=== PATIENT | male | born 1940 | race Caucasian/White ===

== ENCOUNTER 2020-01-20 21:54 | Emergency (ER) | payer MEDICARE, SELFPAY ==
--- NOTE | ~2020-01-20 | XR_ITS ---
XR abdomen/kub 1V 01/20/2020 23:07 INDICATION: Flank pain TECHNIQUE: KUB COMPARISON: CT dated 01/20/2020 FINDINGS: Bowel gas pattern is normal. There are cholecystectomy clips. There is no evidence of free air, mass, organomegaly, ascites or obstruction. No abnormal calculi are seen. The bones appear int act. Moderate lumbar spondylosis. IMPRESSION: 1: No acute abdominal abnormality identified. Reviewed, dictated and finalized at location A.
--- NOTE | ~2020-01-20 | CT_ITS ---
EXAMINATION: CT abdomen pelvis wo con DATE: 01/20/2020 23:04 INDICATION: Left flank pain TECHNIQUE: Computed tomography (CT) of the abdomen and pelvis was performed without intravenous contr ast. The dose-length product was 427.56 mGy-cm. Automated exposure control and iterative reconstructi on technique were employed. COMPARISON: None. FINDINGS: There is a 2 cm cyst left hepatic lobe. Cardiomegaly. There is bibasilar atelectasis. Promi nent right cardiophrenic angle fat pad. No significant pleural or pericardial effusion. There is mild ectasia of the abdominal aorta measuring 2.9 cm with moderate atherosclerosis. There is a 6 cm exoph ytic right renal cyst. The spleen, pancreas, adrenal glands and left kidney are unremarkable. Colonic diverticulosis without evidence for diverticulitis. No lymphadenopathy. Status post cholecystectomy. No free air or free fl uid. Moderate lumbar spondylosis. IMPRESSION: 1. Mild ectasia of the infrarenal abdominal aorta measuring 2.9 cm greatest AP dimension. 2: No acute abdominal abnormality. Reviewed, dictated and finalized at location A.
[2020-01-20 22:01] VITALS: BP 195/80; PULSE 66; RESP 18; TEMP 36.9; O2SAT 100
[2020-01-20] MEDS: MORPHINE SULFATE 4 MG/ML INJ IV PUSH (22:13)
[2020-01-20] MEDS: ONDANSETRON INJ 4 MG/2 ML VIAL IV PUSH (22:13)
--- NOTE | 2020-01-20 22:19 | ED.ABDPAIN ---
HPI - Abdominal Pain General Chief Complaint: Abdominal Pain Stated Complaint: L kidney pain Time Seen by Provider: 01/20/20 21:55 Source: patient Mode of arrival: ambulatory Limitations: no limitations History of Present Illness HPI narrative: This patient is an 79 year old male with history kidney stones, CAD with stents who presents for evaluation of left flank pain. He has been having intermittent pain for 4-5 days. His pain has been to his left flank and it is radiating around to his left abdomen. He has been taking aleve for his pain. He has nausea but no vomiting. He has no urinary symptoms. He reports this pain is similar to previous episode of kidney stones. He denies any trauma MD elicited complaint: flank pain Onset (ago): day(s) (4) Pain Consistency: intermittent Location: L flank Related Data Allergies Allergy/AdvReac Type Severity Reaction Status Date / Time NFA Allergy Unknown Uncoded 12/15/02 13:03 Review of Systems Review of Systems: All systems reviewed & are unremarkable except as noted in HPI and below Constitutional: Constitutional: Denies chills, Denies fever(s) and Denies weakness Cardiovascular: Cardiovascular: Denies chest pain Respiratory: Respiratory: Denies cough and Denies dyspnea Gastrointestinal: Gastrointestinal: Reports abdominal pain, Denies diarrhea, Reports nausea and Denies vomiting Genitourinary: Genitourinary: Denies hematuria, Denies oliguria and Denies urinary frequency Musculoskeletal: Musculoskeletal: Reports back pain [facility] Past Medical History Medical History (Updated 01/21/20 @ 00:54 by Gogo Roger MD) Coronary artery disease Hypertension Surgical History Surgical History (Updated 01/20/20 @ 22:23 by Gogo Roger MD) H/O heart artery stent Exam Const: General: no acute distress and alert Orientation/consciousness: patient oriented x3 Eyes: EOM: EOMs intact bilaterally Resp: Effort & Inspection: normal respiratory effort, no retractions and no use of accessory muscles Auscultation: clear to auscultation bilaterally Cardio: Rate: regular rate Rhythm: regular rhythm Heart sounds: no murmurs Peripheral pulses: Peripheral pulses 2+ throughout GI: GI Palp: Yes Soft to palpation, No Tenderness to palpation present (GI), No Guarding due to palpation present (GI), No Rigid due to palpation and No Hernia present : General: Yes CVA tenderness Skin: General skin exam: normal color Rashes: no rashes Neuro: General: patient oriented x3 and moves all extremities Extrem: General: no pedal edema Course Reevaluation(s) Reevaluation #1: Patient states his pain has resolved. I Discussed CT results. Date: 01/21/20 Time: 00:51 Vital Signs Vital signs: Vital Signs Temperature 98.4 F 01/20/20 22:01 Pulse Rate 66 01/20/20 22:01 Respiratory Rate 18 01/20/20 22:01 Blood Pressure 195/80 H 01/20/20 22:01 Pulse Oximetry 100 01/20/20 22:01 Temperature 98.1 F 01/21/20 01:54 Pulse Rate 85 01/21/20 01:54 Respiratory Rate 18 01/21/20 01:54 Blood Pressure 148/86 H 01/21/20 01:54 Pulse Oximetry 97 01/21/20 01:54 MDM - Abdominal Pain Lab Data Attestation: I reviewed the patient's lab results. Result diagrams: 01/20/20 22:11 01/20/20 22:11 Labs: Lab Results 01/20/20 01/20/20 01/20/20 Range/Units 22:11 22:11 22:11 WBC 10.2 H (4.5-10.0) K/mm3 RBC 4.30 L (4.6-6.20) M/mm3 Hgb 14.3 (14.0-18.0) g/dL Hct 42.4 (42.0-52.0) % MCV 98.6 (80-100) fl MCH 33.3 (26-34) pg MCHC 33.7 (32-36) g/dl RDW 12.8 (11.5-14.5) % Plt Count 197 (150-375) k/mm3 MPV 9.4 (7.4-10.4) fl Immature Gran % (Auto) 0.4 (0-0.5) % Neut % (Auto) 64.0 (45.5-73.1) % Lymph % (Auto) 23.9 (18.3-44.2) % Hamlin % (Auto) 9.3 H (2.6-8.5) % Eos % (Auto) 2.0 (0-4.4) % Baso % (Auto) 0.4 (0.2-1.2) % Lymph # (Auto) 2.44 (0.9-3.2) K/mm3
[2020-01-20 22:23] LABS: Basophils Percent Auto 0.4 % (0.2-1.2); Eosinophils Absolute Auto 0.2 K/mm3 (0-0.3); Hematocrit 42.4 % (42.0-52.0); Hemoglobin 14.3 g/dL (14.0-18.0); Immature Granulocyte Absolute 0.04 K/mm3 (0.00-0.031); Immature Granulocyte Percent A 0.4 % (0-0.5); Lymphocytes Absolute Auto 2.44 K/mm3 (0.9-3.2); Lymphocytes Percent Auto 23.9 % (18.3-44.2); Mean Corpuscular HGB Conc 33.7 g/dl (32-36); Mean Corpuscular Hemoglobin 33.3 pg (26-34); Mean Corpuscular Volume 98.6 fl (80-100); Mean Platelet Volume 9.4 fl (7.4-10.4); Monocytes Percent Auto 9.3 % (2.6-8.5); Neutrophils Absolute Auto 6.6 K/mm3 (1.3-6.7); Platelet Count Result 197 k/mm3 (150-375); Red Cell Distribution Width 12.8 % (11.5-14.5); White Blood Count 10.2 K/mm3 (4.5-10.0)
[2020-01-20 22:30] LABS: Alanine Aminotransferase 45 U/L (4-50); Albumin Level 4.2 g/dL (3.5-5.1); Alkaline Phosphatase 81 U/L (38-126); Anion Gap 11.8 mmol/L (7-16); Aspartate Amino Transferase 39 U/L (17-59); Bilirubin,Total 0.8 mg/dL (0.2-1.3); Blood Urea Nitrogen 28 mg/dL (9-20); Calcium 8.9 mg/dL (8.4-10.2); Carbon Dioxide 29 mmol/L (22-30); Chloride 99 mmol/L (98-107); Estimated CRCL calculation 75 ml/min; Estimated Glomerular Filt Rate > 60; Glucose 144 mg/dL (75-110); Lipase 94 U/L (23-300); Potassium 3.8 mmol/L (3.4-5.0); Sodium 136 mmol/L (137-145)
[2020-01-20 22:52] LABS: Add Urine Microscopic? YES; Appearance Urine Clear (Clear); Bilirubin Urine Negative (Negative); Blood Urine 1+ (Negative); Color Urine Yellow (Yellow); Glucose Urine UA Negative (Negative); Ketones Urine Negative (Negative); Leukocyte Esterase Ur Negative LEU/UL (Negative); Mucus Urine Moderate /lpf; Nitrate Urine Negative (Negative); Protein Urine 1+ mg/dL (Negative); Specific Grav Ur 1.025 (1.001-1.035); Urobilinogen Urine Negative mg/dL (<2.0); WBC Urine 0-3 /hpf
[2020-01-21 00:52] VITALS: BP 184/92; PULSE 81; RESP 16; O2SAT 97
[2020-01-21 01:54] VITALS: BP 148/86; PULSE 85; RESP 18; TEMP 36.7; O2SAT 97
== END 2020-01-21 00:20 | disposition home or self-care (01) ==
PROVIDERS: Emergency Provider General Practice; PCP Family Medicine
DX: R10.9 Unspecified abdominal pain (principal); I10 Essential (primary) hypertension; I25.10 Atherosclerotic heart disease of native coronary artery without angina pectoris
CPT/HCPCS: 36415; 74018; 74176; 80048; 80076; 81001; 83690; 85025; 96374; 96375; 99284; J2270; J2405

== ENCOUNTER 2020-03-16 07:36 | Outpatient (CLI) | payer MEDICARE, SELFPAY ==
[2020-03-16 08:17] LABS: Alanine Aminotransferase 64 U/L (4-50); Albumin Level 3.8 g/dL (3.5-5.1); Alkaline Phosphatase 88 U/L (38-126); Aspartate Amino Transferase 40 U/L (17-59); Bilirubin,Total 0.7 mg/dL (0.2-1.3); Cholesterol 139 mg/dL (0-200); HDL Direct 42 mg/dL; Triglycerides 47 mg/dL (<150)
[2020-03-16 08:28] LABS: LDL Cholesterol Direct 75 mg/dL
== END 2020-03-16 07:37 | disposition home or self-care (01) ==
PROVIDERS: PCP Family Medicine
DX: E78.5 Hyperlipidemia, unspecified (principal); I25.10 Atherosclerotic heart disease of native coronary artery without angina pectoris
CPT/HCPCS: 36415; 80061; 80076

== ENCOUNTER 2021-03-24 07:18 | Outpatient (CLI) | payer MEDICARE, SELFPAY ==
[2021-03-24 08:25] LABS: Alanine Aminotransferase 29 U/L (4-50); Albumin Level 4.2 g/dL (3.5-5.1); Alkaline Phosphatase 68 U/L (38-126); Aspartate Amino Transferase 32 U/L (17-59); Bilirubin,Total 0.7 mg/dL (0.2-1.3); Cholesterol 119 mg/dL (0-200); HDL Direct 36 mg/dL; Triglycerides 83 mg/dL (<150)
[2021-03-24 08:36] LABS: LDL Cholesterol Direct 64 mg/dL
== END 2021-03-24 07:19 | disposition home or self-care (01) ==
PROVIDERS: PCP Family Medicine; Visit Provider Internal Medicine Cardiovascular Disease
DX: I25.10 Atherosclerotic heart disease of native coronary artery without angina pectoris (principal); E78.5 Hyperlipidemia, unspecified
CPT/HCPCS: 36415; 80061; 80076

== ENCOUNTER 2022-03-13 07:26 | Outpatient (CLI) | payer MEDICARE, SELFPAY ==
[2022-03-13 08:06] LABS: Alanine Aminotransferase 36 U/L (6-50); Albumin Level 4.1 g/dL (3.5-5.1); Alkaline Phosphatase 70 U/L (38-126); Aspartate Amino Transferase 38 U/L (17-59); Cholesterol 136 mg/dL (0-200); HDL Direct 43 mg/dL; Triglycerides 117 mg/dL (<150)
[2022-03-13 08:17] LABS: LDL Cholesterol Direct 69 mg/dL
== END 2022-03-13 07:27 | disposition home or self-care (01) ==
PROVIDERS: PCP Family Medicine; Visit Provider Internal Medicine Cardiovascular Disease
DX: E78.2 Mixed hyperlipidemia (principal); I25.10 Atherosclerotic heart disease of native coronary artery without angina pectoris; I10 Essential (primary) hypertension
CPT/HCPCS: 36415; 80061; 80076

== ENCOUNTER 2023-03-19 07:52 | Outpatient (CLI) | payer MEDICARE, SELFPAY ==
[2023-03-19 08:52] LABS: Alanine Aminotransferase 33 U/L (6-50); Alkaline Phosphatase 68 U/L (38-126); Aspartate Amino Transferase 39 U/L (17-59); Cholesterol 140 mg/dL (0-200); HDL Direct 41 mg/dL; Triglycerides 122 mg/dL (<150)
[2023-03-19 09:04] LABS: LDL Cholesterol Direct 77 mg/dL
== END 2023-03-19 07:53 | disposition home or self-care (01) ==
LOC: ANHLAB 07:59
PROVIDERS: PCP Family Medicine; Visit Provider Internal Medicine Cardiovascular Disease
DX: E78.2 Mixed hyperlipidemia (principal); I10 Essential (primary) hypertension
CPT/HCPCS: 36415; 80061; 80076

== ENCOUNTER 2023-10-28 07:10 | Outpatient (CLI) | payer MEDICARE, SELFPAY ==
[2023-10-28 07:56] LABS: Alanine Aminotransferase 28 U/L (6-50); Albumin Level 4.1 g/dL (3.5-5.1); Alkaline Phosphatase 69 U/L (38-126); Anion Gap 6 mmol/L (4-12); Aspartate Amino Transferase 32 U/L (17-59); Blood Urea Nitrogen 20 mg/dL (9-20); Carbon Dioxide 26 mmol/L (22-30); Chloride 107 mmol/L (98-107); Cholesterol 133 mg/dL (0-200); Estimated Glomerular Filt Rate > 60; Glucose 116 mg/dL (65-110); HDL Direct 49 mg/dL; Potassium 3.9 mmol/L (3.4-5.0); Sodium 139 mmol/L (137-145); Triglycerides 74 mg/dL (<150)
[2023-10-28 08:07] LABS: LDL Cholesterol Direct 73 mg/dL
== END 2023-10-28 07:11 | disposition home or self-care (01) ==
LOC: ANHLAB 07:14
PROVIDERS: PCP Family Medicine; Visit Provider Internal Medicine Cardiovascular Disease
DX: I25.10 Atherosclerotic heart disease of native coronary artery without angina pectoris (principal)
CPT/HCPCS: 36415; 80053; 80061

== ENCOUNTER 2024-01-03 10:13 | Outpatient (CLI) | payer MEDICARE, SELFPAY ==
--- NOTE | ~2024-01-03 | CT_ITS ---
CT Scan of the Chest without Contrast: Clinical Indication: COPD Technique: Contiguous sections were acquired throughout the chest without intravenous contrast. Dose reduction technique was used on this scan by utilizing automated exposure control and iterative recon struction technique. The dose-length product (DLP) was 447.83 mGy-cm. Findings: There is no evidence of any significant mediastinal, hilar or axillary lymphadenopathy. There are ext ensive atherosclerotic calcifications of the aorta and coronary arteries. There is no evidence of pleural or pericardial effusion. There is moderately distended. There is diffuse subpleural reticulation and peripheral interstitial t hickening, consistent with chronic interstitial disease. There are several subcentimeter pleural-base d nodular opacities bilaterally. Images through the upper abdomen reveal no abnormalities. Impression: Mild emphysema with mild to moderate chronic interstitial disease, as detailed above. Several subcentimeter pleural-based pulmonary nodules, most likely benign, largest measuring 7 mm. Reviewed, dictated and finalized at [facility]. Impression: Mild emphysema with mild to moderate chronic interstitial disease, as detailed above. Several subcentimeter pleural-based pulmonary nodules, most likely benign, larg est measuring 7 mm.
== END 2024-01-03 10:14 ==
LOC: MICIMG 10:16
PROVIDERS: PCP Family Medicine; Visit Provider Family Medicine
DX: J43.9 Emphysema, unspecified (principal); R91.8 Other nonspecific abnormal finding of lung field
CPT/HCPCS: 71250

== ENCOUNTER 2024-01-08 09:41 | Outpatient (CLI) | payer MEDICARE, SELFPAY ==
--- NOTE | 2024-01-09 18:48 | P.PCNPFT_ITS ---
PFT Procedure Performed PFT Procedure Performed Spirometry with Pre/Post Bronchodilator Plethysmography (Lung Vol) Diffusing Cap (DLCO) Flow Vol Loop PFT Interpretation DOS: 01/08/2024 REQUESTING: Stewart Lipscomb MD REASON FOR TESTING: PULMONARY FUNCTION TESTS Results are reliable and reproducible. Repeatability of spirometry FEV1 maneuver pre and post bronchodilator is Grade A. Spirometry: The pre-bronchodilator FEV1 is 1.78 L, 61%, reduced. The pre- bronchodilator FVC is 4.08 L, 101%, normal. The FEV1/FVC ratio is 44%, decreased, consistent with airflow obstruction. After bronchodilator, the FEV1 is 1.35 L, 46% predicted, -24%. The post bronchodilator FVC is 3.98 L, 99%, -2%. The FEV1/FVC ratio is 34%, decreased. Lung volumes: The total lung capacity is 5.64 L, 75%, below the lower limit of normal, consistent with a restrictive pattern. The residual volume is 1.56 L, 55%, below normal. The RV/TLC is 28%, below normal. Airway resistance is increased. Diffusion: DLCO is 16, 67% predicted, normal. The DLCO/VA is 3.36, 99% predicted, normal. Flow volume loop: The flow volume loop is abnormal with flattening of both limbs, more flattening of the expiratory compared to the inspiratory limb. This pattern is not typical for for either obstruction of restriction. IMPRESSION: This study shows both an obstructive ventilatory impairment and a restrictive impairment without response to bronchodilator. Diffusion is normal. When both obstructive and restrictive abnormalities are present, there is not a standard grading system for determining severity of the obstruction. Lack of response to bronchodilator should not preclude use if clinically indicated. There are no prior studies to compare. The flow volume loop pattern is non-specific. Consider repeating PFTs with flow volume loops in 3-6 months for comparison. . Melodie Rome MD
== END 2024-01-08 09:42 | disposition home or self-care (01) ==
LOC: ANHPFT 09:43
PROVIDERS: PCP Family Medicine; Visit Provider Family Medicine
DX: J44.9 Chronic obstructive pulmonary disease, unspecified (principal)
CPT/HCPCS: 94060; 94726; 94729

== ENCOUNTER 2024-02-14 07:51 | Outpatient (CLI) | payer MEDICARE, SELFPAY ==
[2024-02-14 08:51] LABS: Alanine Aminotransferase 31 U/L (6-50); Alkaline Phosphatase 63 U/L (38-126); Anion Gap 8 mmol/L (4-12); Aspartate Amino Transferase 35 U/L (17-59); Bilirubin,Total 0.9 mg/dL (0.2-1.3); Blood Urea Nitrogen 21 mg/dL (9-20); Calcium 8.8 mg/dL (8.4-10.2); Carbon Dioxide 31 mmol/L (22-30); Chloride 101 mmol/L (98-107); Cholesterol 122 mg/dL (0-200); Estimated Glomerular Filt Rate > 60; Glucose 97 mg/dL (65-110); HDL Direct 44 mg/dL; Potassium 4.1 mmol/L (3.4-5.0); Sodium 140 mmol/L (137-145); Triglycerides 79 mg/dL (<150)
[2024-02-14 09:01] LABS: LDL Cholesterol Direct 61 mg/dL
== END 2024-02-14 07:52 | disposition home or self-care (01) ==
LOC: ANHLAB 07:56
PROVIDERS: PCP Family Medicine; Visit Provider Internal Medicine Cardiovascular Disease
DX: I25.10 Atherosclerotic heart disease of native coronary artery without angina pectoris (principal); I10 Essential (primary) hypertension; E78.2 Mixed hyperlipidemia; R06.09 Other forms of dyspnea
CPT/HCPCS: 36415; 80053; 80061

== ENCOUNTER 2024-08-05 10:59 | Outpatient (CLI) | payer MEDICARE, SELFPAY ==
--- NOTE | ~2024-08-05 | CT_ITS ---
EXAMINATION: CT diagnostic chest wo con DATE: 08/05/2024 11:40 INDICATION: Pulmonary disease TECHNIQUE: Computed tomography (CT) of the chest was performed without intravenous contrast. Addition al 3D reconstructions utilizing coronal maximum intensity projection (MIP) were performed. Automated exposure control and iterative reconstruction technique were employed. The dose-length product was 16 6.41 mGy-cm. COMPARISON: 01/03/2024 FINDINGS: Mild emphysema. Stable appearance of peripheral and lower lung predominant irregular septal line thic kening consistent with chronic interstitial lung disease with either nonspecific interstitial pneumon ia (NSIP) or usual interstitial pneumonia (UIP) pattern. No interval change in multiple subcentimeter pleural and subpleural nodules at the periphery of the bilateral lower lungs, the largest in the rig ht middle lobe measuring 9 x 5 mm. No new or enlarging pulmonary nodules, pneumonia, pulmonary edema or pleural effusion. Heart size is normal. Atherosclerotic coronary artery calcific lesion. Thoracic aorta is normal in caliber. No pathologically enlarged thoracic lymphadenopathy. Cholecystectomy clip s at the gallbladder fossa. There are couple low-attenuation hepatic cysts the largest measuring 2.0 cm. There is also a partially visualized at least 2.5 similar exophytic cyst at the right kidney. Sma ll sliding-type hiatal hernia. Moderate to severe thoracic spondylosis. IMPRESSION: 1. Mild emphysema with stable appearance of peripheral and lower lung predominant UIP versus NSIP pat tern chronic interstitial lung disease. 2. Several unchanged subcentimeter pleural and subpleural nodules in the bilateral lower lungs. Consi piper 12 month follow-up low-dose noncontrast chest CT. Reviewed, dictated and finalized at location A. PAPER SUBSCRIPTION SOLICITOR IMPRESSION: 1. Mild emphysema with stable appearance of peripheral and lower lung predomina nt UIP versus NSIP pattern chronic interstitial lung disease. 2. Several unchanged subcentimeter pleural and subpleural nodules in the bilate ral lower lungs. Consider 12 month follow-up low-dose noncontrast chest CT.
--- OUTSIDE RECORDS SUMMARY | 2024-08-05 11:54 | XMS_ITS | Clinical Summary ---
Author Organization [facility] Address [address] [place] [id number] Care Team Providers Care Cement Mixer Name Role Phone Unavailable Primary Care Provider Unavailabl e Social History Tobacco Use Types Packs/Day Years Used Date Smoking Tobacco: Never Assessed Sex and Gender Information Value Date Recorded Sex Assigned at Not on file Legal Sex Male 5:02 PM CDT Gender Identity Not on file Sexual Orientation Not on file Plan of Treatment Health Maintenance Due Date Last Done Comments DTaP, Tdap and Td Vaccines ( 1 - Tdap) 11/23/1958 Zoster Vaccines (1 of 2) 11/23/1989 Pneumococcal Vaccine: 65+ Ye ars (1 of 1 - PCV) 11/23/2004 RSV Immunization or 60+ Years (1 - 1-dose 75+ series) 11/23/2014 COVID-19 Vaccine ( - 2023-2 5 season) 2024 Influenza Adult (#1) 2024 Meningococcal B Vaccine Aged Out No l onger eligible based on patient's age to complete this topic Meningococcal Vaccine Aged Out No beth darrick eligible based on patient's age to complete this topic RSV Immunizations Under 20 Months Aged Out No longer eligible based on patient's age to complete this topic
--- OUTSIDE RECORDS SUMMARY | 2024-08-05 11:54 | XMS_ITS | Encounter Summary ---
Author Organization [facility] Facility Care Team Providers Care Examiner Rating Clerk Name Role Phone Stewart Lipscomb MD Primary Care Provider [phone] No, Physician Primary Care Provider [phone] Stewart Lipscomb MD Primary Care Provider [phone] Encounter Details Date Type Department Care Team (Latest Contact Info) Description 10/10/2016 Orders Only [facility] ProviderRob MD [address] [place] [id number] Social History Tobacco Use Types Packs/Day Years Used Date Smoking Tobacco: Never Assessed Sex and Gender Information Value Date Recorded Sex Assigned at Not on file Legal Sex Male 11:25 AM CDT Gender Identity Not on file Sexual Orientation Not on file documented as of this encounter Plan of Treatment Not on file documented as of this encounter Procedures Procedure Name Priority Date/Time Associated Diagnosis Comments SCAN - LABS 09/06/2016 12:00 AM CDT documented in this encounter Results * SCAN - LABS (09/06/2016 12:00 AM CDT) Narrative 09/06/2016 12:00 AM CDT Ordered by an unspecified provider. Historical Provider Final Res ult documented in this encounter Visit Diagnoses Not on filedocumented in this encounter Care Teams Examiner Rating Clerk Relationship Specialty Start Date End Date Stewart Lipscomb MD PCP - General Family Medicine 04/04/18 12/17/22 No, Physician PCP - General 03/25/23 07/11/23 Stewart Lipscomb MD PCP - General Family Medicine 07/12/23 documented as of this encounter
--- OUTSIDE RECORDS SUMMARY | 2024-08-05 11:54 | XMS_ITS | Encounter Summary ---
Author Organization [facility] Facility Care Team Providers Care Teacher Physically Impaired Name Role Phone Stewart Lipscomb MD Primary Care Provider [phone] No, Physician Primary Care Provider [phone] Stewart Lipscomb MD Primary Care Provider [phone] Encounter Details Date Type Department Care Team (Latest Contact Info) Description 07/03/2018 Orders Only [facility] ProviderRob MD [address] [place] [address] Social History Tobacco Use Types Packs/Day Years Used Date Smoking Tobacco: Former Smokeless Tobacco: Never Sex and Gender Information Value Date Recorded Sex Assigned at Not on file Legal Sex Male 11:25 AM CDT Gender Identity Not on file Sexual Orientation Not on file documented as of this encounter Plan of Treatment Not on file documented as of this encounter Procedures Procedure Name Priority Date/Time Associated Diagnosis Comments SCAN - LABS 03/18/2018 12:00 AM CDT documented in this encounter Results * SCAN - LABS (03/18/2018 12:00 AM CDT) Narrative 03/18/2018 12:00 AM CDT Ordered by an unspecified provider. Historical Provider Final Res ult documented in this encounter Visit Diagnoses Not on filedocumented in this encounter Care Teams Teacher Physically Impaired Relationship Specialty Start Date End Date Stewart Lipscomb MD PCP - General Family Medicine 04/04/18 12/17/22 No, Physician PCP - General 03/25/23 07/11/23 Stewart Lipscomb MD PCP - General Family Medicine 07/12/23 documented as of this encounter
--- OUTSIDE RECORDS SUMMARY | 2024-08-05 11:54 | XMS_ITS | Encounter Summary ---
Author Organization [facility] Facility Care Team Providers Care Emergency Department Technician Name Role Phone Stewart Lipscomb MD Primary Care Provider [phone] No, Physician Primary Care Provider [phone] Stewart Lipscomb MD Primary Care Provider [phone] Encounter Details Date Type Department Care Team (Latest Contact Info) Description 02/20/2018 Orders Only [facility] ProviderRob MD [address] [place] [id number] Social History Tobacco Use Types Packs/Day Years [...] Procedure Name Priority Date/Time Associated Diagnosis Comments PROCEDURE - RESULT 02/20/2018 12 :00 AM CDT PROCEDURE - RESULT 02/20/2018 12 :00 AM CDT PROCEDURE - RESULT 02/20/2018 12 :00 AM CDT documented in this encounter Results * PROCEDURE - RESULT (02/20/2018 12:00 AM CDT) Narrative 02/20/2018 12:00 AM CDT Ordered by an unspecified provider. Historical Provider Final Res ult * PROCEDURE - RESULT (02/20/2018 12:00 AM CDT) Narrative 02/20/2018 12:00 AM CDT Ordered by an unspecified provider. Historical Provider Final Res ult * PROCEDURE - RESULT (02/20/2018 12:00 AM CDT) Narrative 02/20/2018 12:00 AM CDT Ordered by an unspecified provider. Historical Provider Final Res ult documented in this encounter Visit Diagnoses Not on filedocumented in this encounter Care Teams Emergency Department Technician Relationship Specialty Start Date End Date Stewart Lipscomb MD PCP - General Family Medicine 04/04/18 12/17/22 No, Physician PCP - General 03/25/23 07/11/23 Stewart Lipscomb MD PCP - General Family Medicine 07/12/23 documented as of this encounter
--- OUTSIDE RECORDS SUMMARY | 2024-08-05 11:54 | XMS_ITS | Encounter Summary ---
Author Organization [facility] Facility Care Team Providers Care Tree Farmer Name Role Phone Stewart Lipscomb MD Primary Care Provider [phone] No, Physician Primary Care Provider [phone] Stewart Lipscomb MD Primary Care Provider [phone] Encounter Details Date Type Department Care Team (Latest Contact Info) Description 11/29/2017 Orders Only [facility] ProviderRob MD [address] [place] [address] Social History Tobacco Use Types Packs/Day [...] Priority Date/Time Associated Diagnosis Comments SCAN - PATHOLOGY 11/29/2017 12:0 0 AM CDT documented in this encounter Results * SCAN - PATHOLOGY (11/29/2017 12:00 AM CDT) Narrative 11/29/2017 12:00 AM CDT Ordered by an unspecified provider. Historical Provider Final Res ult documented in this encounter Visit Diagnoses Not on filedocumented in this encounter Care Teams Tree Farmer Relationship Specialty Start Date End Date Stewart Lipscomb MD PCP - General Family Medicine 04/04/18 12/17/22 No, Physician PCP - General 03/25/23 07/11/23 Stewart Lipscomb MD PCP - General Family Medicine 07/12/23 documented as of this encounter
--- OUTSIDE RECORDS SUMMARY | 2024-08-05 11:54 | XMS_ITS | Encounter Summary ---
Author Organization [facility] Facility Care Team Providers Care Telephone Triage Nurse Name Role Phone Stewart Lipscomb MD Primary Care Provider [phone] No, Physician Primary Care Provider [phone] Stewart Lipscomb MD Primary Care Provider [phone] Encounter Details Date Type Department Care Team (Latest Contact Info) Description 01/08/2018 Orders Only [facility] ProviderRob MD [address] [place] [id number] Social History Tobacco Use Types Packs/Day [...] Date/Time Associated Diagnosis Comments SCAN - LABS 12/30/2017 12:00 AM CDT documented in this encounter Results * SCAN - LABS (12/30/2017 12:00 AM CDT) Narrative 12/30/2017 12:00 AM CDT Ordered by an unspecified provider. Historical Provider Final Res ult documented in this encounter Visit Diagnoses Not on filedocumented in this encounter Care Teams Telephone Triage Nurse Relationship Specialty Start Date End Date Stewart Lipscomb MD PCP - General Family Medicine 04/04/18 12/17/22 No, Physician PCP - General 03/25/23 07/11/23 Stewart Lipscomb MD PCP - General Family Medicine 07/12/23 documented as of this encounter
--- OUTSIDE RECORDS SUMMARY | 2024-08-05 11:54 | XMS_ITS | Encounter Summary ---
Author Organization [facility] Facility Care Team Providers Care Book Repairer Name Role Phone Stewart Lipscomb MD Primary Care Provider [phone], Physician Primary Care Provider [phone] Stewart Lipscomb MD Primary Care Provider [phone] Encounter Details Date Type Department Care Team (Latest Contact Info) Description 07/15/2015 Orders Only [facility] ProviderRob MD [address] [place] [id number] Social History Tobacco Use Types Packs/Day [...] Date/Time Associated Diagnosis Comments SCAN - LABS 04/04/2016 12:00 AM CDT documented in this encounter Results * SCAN - LABS (04/04/2016 12:00 AM CDT) Narrative 04/04/2016 12:00 AM CDT Ordered by an unspecified provider. Historical Provider Final Res ult documented in this encounter Visit Diagnoses Not on filedocumented in this encounter Care Teams Book Repairer Relationship Specialty Start Date End Date Stewart Lipscomb MD PCP - General Family Medicine 04/04/18 12/17/22 No, Physician PCP - General 03/25/23 07/11/23 Stewart Lipscomb MD PCP - General Family Medicine 07/12/23 documented as of this encounter
--- OUTSIDE RECORDS SUMMARY | 2024-08-05 11:54 | XMS_ITS | Clinical Summary ---
Author Organization [facility] Address [address] [place] [address] Care Team Providers Care Instrument Specialist Name Role Phone Stewart Lipscomb MD Primary Care Provider [phone] Allergies No known active allergies Medications doxazosin (CARDURA) 4 mg tablet Take 1 tablet (4 mg total) by mouth nightly 8 Active finasteride (PROSCAR) 5 mg tablet Take 1 tablet (5 mg total) by mouth daily 8 Active omega 5-svs-rgm-fish oil 360-1,200 mg capsule,delayed release(DR/EC) Take 2,400 mg by mouth nightly Active famotidine (PEPCID) 20 mg tablet Take 1 tablet (20 mg total) by mouth 2 (two) times a day Active amitriptyline (ELAVIL) 50 mg tablet Take 1 tablet (50 mg total) by mouth 2 (two) times a day 180 tablet 1 1 Active SUMAtriptan (IMITREX) 50 mg tabletIndicatio ns:Migraine Take 1 tablet (50 mg total) by mouth as needed for migraine May repeat dose once in 2 hours if no relief. Do not exceed 2 doses in 24 hours. 60 tablet 3 1 Active multivitamin capsule Take 1 capsule by mouth daily Active amLODIPine (NORVASC) 10 mg tablet Take 1 tablet (10 mg total) by mouth daily 90 tablet 3 2 Active clopidogreL (PLAVIX) 75 mg tablet Take 1 tablet (75 mg total) by mouth daily 90 tablet 3 4 Active atorvastatin (LIPITOR) 80 mg tablet Take 1 tablet (80 mg total) by mouth daily 90 tablet 3 4 Active lisinopriL (PRINIVIL,ZESTR IL) 10 mg tablet Take 1 tablet (10 mg total) by mouth daily 90 tablet 3 4 Active ezetimibe (ZETIA) 10 mg tablet Take 1 tablet (10 mg total) by mouth daily 90 tablet 3 4 Active fluticasone propionate (FLONASE) 50 mcg/actuation nasal sprayIndication s:YESENIA (obstructive sleep apnea),Panlobul ar emphysema (HCC) Administer 2 sprays into each nostril daily 16 g 6 5 01/24/20 25 Active loratadine (CLARITIN) 10 mg tabletIndicatio ns:YESENIA (obstructive sleep apnea),Panlobul ar emphysema (HCC) Take 1 tablet (10 mg total) by mouth daily 30 tablet 11 5 07/27/19 26 Active Active Problems Problem Noted Date Diagnosed Date 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 The patient also has an albuterol inhaler to use on a p.r.n. basis up to 4 times a day as needed symptom control. I also ordered the patient a Flonase and Claritin to see if this may help with postnasal drip and cough. Pulmonary nodules 07/27/2024 Assessment & Plan (07/27/2024 11:15 AM CORROSION CONTROL ENGINEER): I have ordered CT scan to compare the pulmonary nodules. The patient is going to obtain a disc from [facility] so that we can compare images. Chest pressure 10/10/2022 YESENIA (obstructive sleep apnea) 05/08/2021 Assessment & Plan (07/27/2024 11:14 AM CORROSION CONTROL ENGINEER): Due to ongoing symptoms, the patient will continue CPAP at 5-15 cm water pressure. Denied need for supplies. DME [employer] Assessment & Plan (04/23/2024 11:22 AM CDT): Patient continue to wear CPAP in auto titrating range of 5-15 cm water pressure while sleeping. His DME is [facility]. Assessment & Plan (04/22/2023 11:12 AM CDT): Patient continue to wear CPAP in auto titrating range of 5-15 cm water pressure while sleeping. His DME is [facility]. I have sent over an order to change the style of CPAP mask due to having magnets. Assessment & Plan (04/16/2022 11:34 AM CDT): The patient will continue with auto titrating CPAP therapy set at 5-15 cm water pressure to treat obstructive sleep apnea. DME [employer]. The patient has received his new CPAP from [employer]. Assessment & Plan (05/08/2021 10:52 AM CORROSION CONTROL ENGINEER): The patient will continue with auto titrating CPAP therapy set at 5-15 cm water pressure to treat obstructive sleep apnea. Patient denied need for supplies. DME [employer]. The patient and I discussed the recall in depth. The patient was instructed to examine CPAP machine prior to use for debris. The patient has already registered the CPAP machine for replacement. Mixed hyperlipidemia 04/04/2021 Essential hypertension 09/27/2020 Abnormal liver function test 03/29/2020 PVC's (premature ventricular contractions) 12/10 Assessment & Plan (12/10/2018 11:03 AM CDT): Discussed in detail with patient and . EKG shows LV outflow track origin likely coronary cusp. Significant risk with ablation. Would not pursue at this time. Stop metoprolol. Continue [place] 3 fatty acids check magnesium level. Discussed association with cardiomyopathy and would consider if EF deteriorates over time Bradycardia 12/10/2018 Assessment & Plan (12/10/2018 11:04 AM CDT): Mild. Stop metoprolol. Check thyroid panel. 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 I have also requested the pulmonary function test and CT scan results from [facility]. Assessment & Plan (12/10/2018 11:02 AM CDT): Not secondary to PVCs. Dyslipidemia 10/03/2018 04/04/2021 Encounters Date Type Department Care Team Description 07/27/2024 10:30 AM CORROSION CONTROL ENGINEER Office Visit [facility] Pulmonary [address] [place] [phone] Neha Hunter NP YESENIA (obstructive sleep apnea) (Primary Dx); Panlobular emphysema (HCC); Pulmonary nodules 07/27/[address] [place] [phone] Ehsan Cutler MD 06/12/2024 10:30 AM CORROSION CONTROL ENGINEER Office Visit [facility] Cardiology [address] [place] [address] [place] [address] [phone] Leobardo Harrell MD Dyspnea on exertion (Primary Dx); Coronary artery disease involving nome coronary artery of nome heart without angina pectoris; Essential hypertension; Mixed hyperlipidemia from Last 3 Months Immunizations Name Administration Dates Next Due Influenza, Quadrivalent, Sweetie l Culture-based MDCK, Preservative Free, Antibiotic Free, Intramuscular 03/25/2020 Influenza, Trivalent, High D ose, Split, Preservative Free, Intramuscular 04/18/2018,05/21/2017,04/23/2016,04/09,03/28/2015 Pfizer SARS-CoV-2 Monovalent Vaccination (12+ Yrs) PURPLE 08/31/2020,08/11/2020 TD Preservative Free 12/29/2013 Surgical History Surgery Date Site/Laterality Comments CORONARY ANGIOPLASTY CHOLECYSTECTOMY ROTATOR CUFF REPAIR HERNIA REPAIR EXTERNAL FRONTAL ETHMOIDECTOMY Medical History Medical History Date Comments Coronary artery disease Hyperlipidemia Obstructive sleep apnea Hypertension Family History Medical History Relation Name Comments Heart attack Father Heart disease Father No Known Problems Son Relation Name Status Comments Father Mother Son Alive Social History Tobacco Use Types Packs/Day Years Used Date Smoking Tobacco: Former Cigarettes Q uit: 01/29/1980 Smokeless Tobacco: Never Tobacco Cessation:Counseling Given: Not Answered Alcohol Use Standard Drinks/Week Comments Never 0 (1 standard drink = 0.6 oz pur e alcohol) AUDIT-C Answer Date Recorded Q1: How often do you have a drink containing alc ohol? Never 07/27/2024 Average Number of Drinks Not on file 025 Frequency of Binge Drinking Not on file 08/2024 PHQ-2 Answer Date Recorded PHQ-2 Total Score (If total score is 3 or more points, staff should administer the PHQ-9) 0 03/14/2020 Sex and Gender Information Value Date Recorded Sex Assigned at Not on file Legal Sex Male 11:25 AM CDT Gender Identity Not on file Sexual Orientation Not on file Obstetrics History Last Filed Vital Signs Vital Sign Reading Time Taken Comments Blood Pressure 124/62 07/27/2024 10:37 AM CORROSION CONTROL ENGINEER Pulse 72 07/27/2024 10:37 AM CORROSION CONTROL ENGINEER Temperature 36.6 C (97.9 F) 07/27/2024 10:37 AM CORROSION CONTROL ENGINEER Respiratory Rate 14 07/27/2024 10:37 AM CORROSION CONTROL ENGINEER Oxygen Saturation 98% 07/27/2024 10:37 AM CORROSION CONTROL ENGINEER Inhaled Oxygen Concentration - - Weight 96.2 kg (212 lb) 07/27/2024 10:37 AM CORROSION CONTROL ENGINEER Height 182.9 cm (6') 07/27/2024 10:37 AM CORROSION CONTROL ENGINEER Body Mass Index 28.75 07/27/2024 10:37 AM CORROSION CONTROL ENGINEER Plan of Treatment Health Maintenance Due Date Last Done Comments Hepatitis B Screening 11/23/1958 Well Visit 65+ 11/23/2004 Depression Screening 03/14/2021 03/14/2020 Fall Risk Assessment 03/14/2021 03/14/2020 Covid-19 Vaccine (4 2023- 5 season) 2024 03/20/2021, 08/31/2020, 08/11/2020 DTaP/Tdap/Td Vaccine (2 - Td or Tdap) 09/26/2028 09/26/2018, 12/29/2013 Zoster Vaccine Completed 04/07/2021, 01/06/2021 Pneumococcal vaccine 65+ Completed 01/04/2022, 0410/2018 Influenza Vaccine Completed 04/24/2024, , 05/03/2021, Additional history exists Insurance MEDICARE COMMERCIAL GENERIC [employer] SENIOR [employer]MENT MEDIC[place] [address] Care Teams Instrument Specialist Relationship Specialty Start Date End Date Stewart Lipscomb MD PCP - General Family Medicine 07/12/23
--- OUTSIDE RECORDS SUMMARY | 2024-08-05 11:54 | XMS_ITS | Encounter Summary ---
Author Organization [facility] Facility Care Team Providers Care Hospice Home Care Coordinator Name Role Phone Stewart Lipscomb MD Primary Care Provider [phone] No, Physician Primary Care Provider [phone] Stewart Lipscomb MD Primary Care Provider [phone] Encounter Details Date Type Department Care Team (Latest Contact Info) Description 12/12/2017 Orders Only [facility] CLINCON[facility] ProviderRob MD [address] [place] [id number] Social History Tobacco Use Types Packs/Day [...] Date/Time Associated Diagnosis Comments SCAN - PATHOLOGY 04/07/2018 12:0 0 AM CDT COLONOSCOPY - SCAN 12/12/2017 12 :00 AM CDT documented in this encounter Results * SCAN - PATHOLOGY (04/07/2018 12:00 AM CDT) Narrative 04/07/2018 12:00 AM CDT Ordered by an unspecified provider. Historical Provider Final Res ult * COLONOSCOPY - SCAN (12/12/2017 12:00 AM CDT) Narrative 12/12/2017 12:00 AM CDT Ordered by an unspecified provider. us Historical Provider Final Res ult documented in this encounter Visit Diagnoses Not on filedocumented in this encounter Care Teams Hospice Home Care Coordinator Relationship Specialty Start Date End Date Stewart Lipscomb MD PCP - General Family Medicine 04/04/18 12/17/22 No, Physician PCP - General 03/25/23 07/11/23 Stewart Lipscomb MD PCP - General Family Medicine 07/12/23 documented as of this encounter
--- OUTSIDE RECORDS SUMMARY | 2024-08-05 11:54 | XMS_ITS | Encounter Summary ---
Author Organization [facility] Facility Care Team Providers Care Steel Rigger Name Role Phone Stewart Lipscomb MD Primary Care Provider [phone] No, Physician Primary Care Provider [phone] Stewart Lipscomb MD Primary Care Provider [phone] Encounter Details Date Type Department Care Team (Latest Contact Info) Description 04/04/2016 Orders Only [facility] CLINCONV ProviderRob MD [address] [place] [address] Social History Tobacco Use Types Packs/Day [...] on filedocumented in this encounter Care Teams Steel Rigger Relationship Specialty Start Date End Date Stewart Lipscomb MD PCP - General Family Medicine 04/04/18 12/17/22 No, Physician PCP - General 03/25/23 07/11/23 Stewart Lipscomb MD PCP - General Family Medicine 07/12/23 documented as of this encounter
--- OUTSIDE RECORDS SUMMARY | 2024-08-05 11:54 | XMS_ITS | Encounter Summary ---
Author Organization [facility] Facility Care Team Providers Care Instructor Apparel Manufacture Name Role Phone Stewart Lipscomb MD Primary Care Provider [phone] No, Physician Primary Care Provider [phone] Stewart Lipscomb MD Primary Care Provider [phone] Encounter Details Date Type Department Care Team (Latest Contact Info) Description 12/03/2017 Orders Only [facility] CLINCON[facility] ProviderRob MD [address] [place] [address] Social History Tobacco Use Types Packs/Day [...] Date/Time Associated Diagnosis Comments SCAN - PATHOLOGY 12/04/2017 12:0 0 AM CDT documented in this encounter Results * SCAN - PATHOLOGY (12/04/2017 12:00 AM CDT) Narrative 12/04/2017 12:00 AM CDT Ordered by an unspecified provider. Historical Provider Final Res ult documented in this encounter Visit Diagnoses Not on filedocumented in this encounter Care Teams Instructor Apparel Manufacture Relationship Specialty Start Date End Date Stewart Lipscomb MD PCP - General Family Medicine 04/04/18 12/17/22 No, Physician PCP - General 03/25/23 07/11/23 Stewart Lipscomb MD PCP - General Family Medicine 07/12/23 documented as of this encounter
--- OUTSIDE RECORDS SUMMARY | 2024-08-05 11:54 | XMS_ITS | Encounter Summary ---
Author Organization [facility] Facility Care Team Providers Care Food Preparation Worker Name Role Phone Stewart Lipscomb MD Primary Care Provider [phone] No, Physician Primary Care Provider [phone] Stewart Lipscomb MD Primary Care Provider [phone] Encounter Details Date Type Department Care Team (Latest Contact Info) Description 01/02/2018 Orders Only [facility] CLINCONV ProviderRob MD [address] [place] [address] Social History Tobacco Use Types Packs/Day [...] Date/Time Associated Diagnosis Comments PROCEDURE - RESULT 12/31/2017 12 :00 AM CDT documented in this encounter Results * PROCEDURE - RESULT (12/31/2017 12:00 AM CDT) Narrative 12/31/2017 12:00 AM CDT Ordered by an unspecified provider. Historical Provider Final Res ult documented in this encounter Visit Diagnoses Not on filedocumented in this encounter Care Teams Food Preparation Worker Relationship Specialty Start Date End Date Stewart Lipscomb MD PCP - General Family Medicine 04/04/18 12/17/22 No, Physician PCP - General 03/25/23 07/11/23 Stewart Lipscomb MD PCP - General Family Medicine 07/12/23 documented as of this encounter
--- OUTSIDE RECORDS SUMMARY | 2024-08-05 11:54 | XMS_ITS | Encounter Summary ---
Author Organization [facility] Facility Care Team Providers Care Table Top Tile Setter Name Role Phone Stewart Lipscomb MD Primary Care Provider [phone] No, Physician Primary Care Provider [phone] Stewart Lipscomb MD Primary Care Provider [phone] Encounter Details Date Type Department Care Team (Latest Contact Info) Description 02/21/2018 Orders Only [facility] CLINCONV ProviderRob MD [address] [place] [address] Social History Tobacco Use Types Packs/Day [...] Date/Time Associated Diagnosis Comments PROCEDURE - RESULT 02/21/2018 12 :00 AM CDT documented in this encounter Results * PROCEDURE - RESULT (02/21/2018 12:00 AM CDT) Narrative 02/21/2018 12:00 AM CDT Ordered by an unspecified provider. Historical Provider Final Res ult documented in this encounter Visit Diagnoses Not on filedocumented in this encounter Care Teams Table Top Tile Setter Relationship Specialty Start Date End Date Stewart Lipscomb MD PCP - General Family Medicine 04/04/18 12/17/22 No, Physician PCP - General 03/25/23 07/11/23 Stewart Lipscomb MD PCP - General Family Medicine 07/12/23 documented as of this encounter
--- OUTSIDE RECORDS SUMMARY | 2024-08-05 11:54 | XMS_ITS | Encounter Summary ---
Author Organization [facility] Facility Care Team Providers Care Room Designer Name Role Phone Stewart Lipscomb MD Primary Care Provider [phone] No, Physician Primary Care Provider [phone] Stewart Lipscomb MD Primary Care Provider [phone] Encounter Details Date Type Department Care Team (Latest Contact Info) Description 12/18/2017 Orders Only [facility] CLINCON[facility] ProviderRob MD [address] [place] [address] Social History Tobacco Use Types Packs/Day [...] Date/Time Associated Diagnosis Comments PROCEDURE - RESULT 12/18/2017 12 :00 AM CDT documented in this encounter Results * PROCEDURE - RESULT (12/18/2017 12:00 AM CDT) Narrative 12/18/2017 12:00 AM CDT Ordered by an unspecified provider. Historical Provider Final Res ult documented in this encounter Visit Diagnoses Not on filedocumented in this encounter Care Teams Room Designer Relationship Specialty Start Date End Date Stewart Lipscomb MD PCP - General Family Medicine 04/04/18 12/17/22 No, Physician PCP - General 03/25/23 07/11/23 Stewart Lipscomb MD PCP - General Family Medicine 07/12/23 documented as of this encounter
--- OUTSIDE RECORDS SUMMARY | 2024-08-05 11:54 | XMS_ITS | Encounter Summary ---
Author Organization [facility] Facility Care Team Providers Care Creative Consultant Name Role Phone Stewart Lipscomb MD Primary Care Provider [phone], Physician Primary Care Provider [phone] Stewart Lipscomb MD Primary Care Provider [phone] Encounter Details Date Type Department Care Team (Latest Contact Info) Description 09/05/2017 Orders Only [facility] CLINCONV ProvideroRb MD [address] [place] [address] Social History Tobacco Use Types Packs/Day [...] Date/Time Associated Diagnosis Comments SCAN - LABS 10/09/2017 12:00 AM CDT documented in this encounter Results * SCAN - LABS (10/09/2017 12:00 AM CDT) Narrative 10/09/2017 12:00 AM CDT Ordered by an unspecified provider. Historical Provider Final Res ult documented in this encounter Visit Diagnoses Not on filedocumented in this encounter Care Teams Creative Consultant Relationship Specialty Start Date End Date Stewart Lipscomb MD PCP - General Family Medicine 04/04/18 12/17/22 No, Physician PCP - General 03/25/23 07/11/23 Stewart Lipscomb MD PCP - General Family Medicine 07/12/23 documented as of this encounter
--- OUTSIDE RECORDS SUMMARY | 2024-08-05 11:54 | XMS_ITS | Referral Summary ---
Author Organization [facility] Address [address] [place] [address] Care Team Providers Care Plater Hot Dip Name Role Phone Stewart Lipscomb MD Primary Care Provider [phone] Encounters Date Type Department Care Team Description 07/27/2024 Telephone [facility] Pulmonary [address] [phone] Ehsan Cutler MD 07/27/2024 10:30 AM WASH CREW PERSON Office Visit [address] [phone] Neha Hunter NP YESENIA (obstructive sleep apnea) (Primary Dx); Panlobular emphysema (HCC); Pulmonary nodules 06/12/2024 10:30 AM WASH CREW PERSON Office Visit [facility] Cardiology [address] [phone] Leobardo Harrell MD Dyspnea on exertion (Primary Dx); Coronary artery disease involving mi'kmaq coronary artery of mi'kmaq heart without angina pectoris; Essential hypertension; Mixed hyperlipidemia from Last 3 Months Allergies No known active allergies Medications doxazosin (CARDURA) 4 mg tablet Take 1 tablet (4 mg total) by mouth nightly 8 Active finasteride (PROSCAR) 5 mg tablet Take 1 tablet (5 mg total) by mouth daily 8 Active omega 8-weh-rta-fish oil 360-1,200 mg capsule,delayed release(DR/EC) Take 2,400 [...] 07/27/2024 Assessment & Plan (07/27/2024 11:15 AM WASH CREW PERSON): Due to the patient having shortness of [...] 07/27/2024 Assessment & Plan (07/27/2024 11:15 AM WASH CREW PERSON): I have ordered CT scan to compare the pulmonary nodules. The patient is going to obtain a disc from [facility] so that we can compare images. Chest pressure 10/10/2022 YESENIA (obstructive sleep apnea) 05/08/2021 Assessment & Plan (07/27/2024 11:14 AM WASH CREW PERSON): Due to ongoing symptoms, the patient will [...] pressure to treat obstructive sleep apnea. D[employer]. The patient has received his new CPAP from [employer]. Assessment & Plan (05/08/2021 10:52 AM WASH CREW PERSON): The patient will continue with auto titrating CPAP therapy set at 5-15 cm water pressure to treat obstructive sleep apnea. Patient denied need for supplies. D[employer]. The patient and I discussed the recall [...] pursue at this time. Stop metoprolol. Continue [place] 3 fatty acids check magnesium level. Discussed association with cardiomyopathy and would consider if EF deteriorates over time Bradycardia 12/10/2018 Assessment & Plan (12/10/2018 11:04 AM CDT): Mild. Stop metoprolol. Check thyroid panel. Palpitations 10/03/2018 Coronary artery disease invo lving mi'kmaq coronary artery of mi'kmaq heart without angina pectoris 10/03/2018 History of [...] function test and CT scan [facility]. Assessment & Plan (12/10/2018 11:02 AM CDT): Not secondary to PVCs. Dyslipidemia 10/03/2018 04/04/2021 Immunizations Name Administration Dates Next Due Influenza, Quadrivalent, Sweetie l Culture-based MDCK, Preservative Free, Antibiotic Free, Intramuscular 03/25/2020 Influenza, Trivalent, High D ose, Split, Preservative Free, Intramuscular 04/18/2018,05/21/2017,04/23/2016,04/09,03/28/2015 Pfizer SARS-CoV-2 Monovalent Vaccination (12+ Yrs) PURPLE 08/31/2020,08/11/2020 TD Preservative Free 12/29/2013 Social History Tobacco Use Types Packs/Day Years [...] on file Sexual Orientation Not on file Last Filed Vital Signs Vital Sign Reading Time Taken Comments Blood Pressure 124/62 07/27/2024 10:37 AM WASH CREW PERSON Pulse 72 07/27/2024 10:37 AM WASH CREW PERSON Temperature 36.6 C (97.9 F) 07/27/2024 10:37 AM WASH CREW PERSON Respiratory Rate 14 07/27/2024 10:37 AM WASH CREW PERSON Oxygen Saturation 98% 07/27/2024 10:37 AM WASH CREW PERSON Inhaled Oxygen Concentration - - Weight 96.2 kg (212 lb) 07/27/2024 10:37 AM WASH CREW PERSON Height 182.9 cm (6') 07/27/2024 10:37 AM WASH CREW PERSON Body Mass Index 28.75 07/27/2024 10:37 AM WASH CREW PERSON Plan of Treatment Not on file Insurance MEDICARE COMMERCIAL GENERIC [facility] SENIOR SUPPLEMENT MEDICARE AET SENIOR SUPPLEMENT Care Teams Plater Hot Dip Relationship Specialty Start Date End Date Stewart Lipscomb MD PCP - General Family Medicine 07/12/23
--- OUTSIDE RECORDS SUMMARY | 2024-08-05 11:54 | XMS_ITS | Data Portability ---
Author Organization [facility] Address [address] [place] [address] Assessment No assessment recorded. Plan of Treatment Reminders Order Date Submit Date Provider Last Modified By Organization Details Last Modified Time Details Appointments None recorded. Lab None recorded. Referral None recorded. Procedures None recorded. Surgeries None recorded. Imaging None recorded. Medication Orders albuterol sulfate HFA 90 mcg/actuat ion aerosol inhaler 2023 024 [email or web address] [facility] [address] [facility], [place], [address], 14:19:37 Patient TargetsNo targets recorded. Patient Instructions Encounter Date Encounter Id Patient Instructions Last Modified By Organization Details Last Modified Time 03/25/2024 [id number] A healthy lifestyle: care instructions [email or web address] Not available 05/29/2024 10:39:29 Reason for Referral None Reported. Results Created Date Observation Date Name Description Value Unit Range Abnormal Flag Note LastModifiedBy Organization Detail LastModifiedTime 11/03/1911/02/2022 cardi ac stres s test No observ ation record ed. [facility] Cardiovascula r Department [address] [facility] , [place], [address], 11/05/2022 08:29:17 03/25/20 24 01/03/2024 CT, chest , w/o contr ast No observ ation record ed. [facility] [address], [place], [address], 03/25/2024 13:44:50 Result Notes None recorded. 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, [place], [address], [facility] 3 11:32:11 Benign prostatic hyperplasia without outflow obstruction 598279257 Active 2022 Stewart Lipscomb MD Attn: Casper garg,[address] [place], [address], [facility] 3 11:32:11 Hypercholes terolemia 21745589 Active 2022 Stewart Lipscomb MD Attn: Casper garg,[address] [place], [address], [facility] 3 11:32:12 Benign essential hypertensio n 1159891 Active 2022 Stewart Lipscomb MD Attn: Casper garg,[address] [place], [address], [facility] 3 11:32:14 Chronic obstructive pulmonary disease 61180305 Active 2023 Stewart Lipscomb MD Attn: Casper garg,[address] [place], [address], [place] - [facility] 4 12:11:39 Problem Notes None recorded. Procedures Surgical History None recorded. Imaging Results Imaging Date Name Status LastModified by [facility] Details LastModified Time 11/02/2022 cardiac [email or web address] [address] [place], [address], 11/05/2022 08:29:17 01/03/2024 CT, chest, w/o contrast completed [facility] [address] [place], [address], 03/25/2024 13:44:50 Procedure Notes None recorded. Medical Equipment None Reported. Allergies No known drug allergies Medications Name Sig Start Date Stop Date Status Note LastModified by Organization Details LastModified Time atorvastati n 80 mg tablet TAKE 1 TABLET BY MOUTH ONCE DAILY active Not Available Not Available No t Available benzonatate 200 mg capsule TAKE ONE (1) CAPSULE(S ) BY MOUTH THREE TIMES A DAY. 12/23 completed Not Available Not Available Not Available clopidogrel 75 mg tablet TAKE 1 TABLET BY MOUTH ONCE DAILY active Not Available Not Available No t Available amlodipine 10 mg tablet TAKE 1 TABLET BY MOUTH ONCE DAILY 03/23 completed Not Available Not Available Not Available lisinopril 10 mg tablet TAKE 1 TABLET BY MOUTH ONCE DAILY active Not Available Not Available No t Available doxazosin 4 mg tablet TAKE 1 TABLET BY MOUTH ONCE DAILY 03/23 completed Not Available Not Available Not Available methylpredn isolone 4 mg tablets in a dose pack TAKE DIRECTED BY PACKAGE INSTRUCTI ONS. 12/23 completed Not Available Not Available Not Available albuterol sulfate HFA 90 mcg/actuati on aerosol inhaler Inhale 2 puffs every 4 hours by inhalatio n route. 2023 active Not Available Not Available Not Avai lable finasteride 5 mg tablet TAKE 1 TABLET BY MOUTH ONCE DAILY 03/23 completed Not Available Not Available Not Available azithromyci n 500 mg tablet TAKE ONE (1) TABLET(S) BY MOUTH ONCE A DAY. 12/23 completed Not Available Not Available Not Available ezetimibe 10 mg tablet TAKE 1 TABLET BY MOUTH ONCE DAILY active Not Available Not Available No t Available Vitals Date Recorded Body height Body mass index (BMI) Body weight Body temperature Oxygen saturation Oxygen saturation in Arterial blood by Pulse oximetry Heart rate Systolic blood pressure Diastolic blood pressure Provider Name and Address Organization Details Last Updated DateTime 3 182.88 cm 28.5 kg/m2 08661.4 g 97.6 [degF] 98 % 98 % 62 /min 122 mm[Hg] 60 mm[Hg] Antonia Guo [place] - [facility] 3 11:07:30 Date Recorded Body weight Respiratory rate Body temperature Body mass index (BMI) Body height Systolic blood pressure Diastolic blood pressure Provider Name and Address Organization Details Last Updated DateTime 4 35029.4 4 g 16 /min 97.6 [degF] 27.8 kg/m2 182.88 cm 122 mm[Hg] 70 mm[Hg] Radha Joshua [facility] 4 11:19:17 Date Recorded Body height Body mass index (BMI) Body weight Oxygen saturation Oxygen saturation in Arterial blood by Pulse oximetry Heart rate Respiratory rate Systolic blood pressure Diastolic blood pressure Provider Name and Address Organization Details Last Updated DateTime 182.88 cm 28.1 kg/m2 72408.6 2 g 98 % 98 % 68 /min 16 /min 124 mm[Hg] 78 mm[Hg] Ariadne Sanchez MA [facility] 4 11:03:20 Social History Question Answer Notes LastModified by Organizat ion Details LastModified Time Tobacco Smoking Status Never Smoker Antonia Guo [place] [email or web address], [facility] 10/02/2022 11:05:59 What Is Your Level Of Alcohol Consumption? None [email or web address] Information not available 10/02/2022 What Is Your Level Of Caffeine Consumption? None Information not available 12/24/2023 What Was The Date Of Your Most Recent Tobacco Screening? 03/25/2024 [email or web address] Information not available 03/25/2024 Do You Use Any Illicit Or Recreational Drugs? No [email or web address] Information not available 12/24/2023 Has Tobacco Cessation Counseling Been Provided? No Information not available 12/24/2023 Do You Or Have You Ever Used Any Other Forms Of Tobacco Or Nicotine? No [email or web address] Information not available 12/24/2023 Sex: Unknown Functional Status None recorded. Mental Status None recorded. Family History Relationship Description Onset Age of this Age Resolved Age Notes LastModified by Organization Details LastModified Time Father Coronary arterioscler [email or web address] Not available 2023 11:20:28 Father Diabetes mellitus Not available 2023 11:20:36 Father Myocardial infarction [email or web address] Not available 12/23 11:20:48 Medical History Condition Response Coronary Artery Disease N Other N Atrial Fibrillation N High Blood Pressure N Thyroid Problems N Kidney or Bladder Problems N Depression N COPD N Blood Clots N GI Problems N Have you had a mammogram in the last yea r? N Skin Problems N Eating Disorder N Anemia N Heart Attack (DE) N Diabetes N Anxiety Disorder N Muscle, Joint, or Bone Problems N Seizures/Epilepsy N Have you had a colonoscopy in the last 1 0 years? N Arthritis N Acid Reflux (GERD) N Cancer N Stroke Y Allergies N Asthma N Have you had a PSA blood test in the las t year? N ADHD N Substance Abuse N High Cholesterol N Hepatitis N Liver Disease Y Schizophrenia N Headaches N Osteoporosis N Heart Failure N Past Encounters Encounter ID Performer Location Encounter Start Date Encounter Closed Date Diagnosis/Indication Diagnosis SNOMED-CT Code Diagnosis ICD10 Code Diagnosis Note [id number] Stewart Lipscomb MD [facility] [address] [place] [address] 10/02/2022 10:56:40 10/03/2022 11:41:47 Benign essential hypertension 3849258 I10 condition chroinc and at goal continue the norvasc and lisinopril Hypercholesterolemia 136 07751 E78.00 condition chroinc and at goal continue hte atorvastat in and zetia Benign pro static hyperplasia without outflow obstruction 581867392 N40.0 condition chronic nad at goal continue hte finasterid e and the doxazin Atheroscle rosis of coronary artery without angina pectoris 3360774130 73707 I25.10 conditon chronic and at goal continue the plavix [id number] Stewart Lipscomb MD [facility] [address] [place] [address] 12/24/2023 10:49:48 12/27/2023 13:56:43 Chronic obstructive pulmonary disease 25603910 J44.9 conditoin chroin cand not at goal order albuterol inhaler with [address] chest and pft Atheroscle rosis of coronary artery without angina pectoris 7381276518 83355 I25.10 conditon chronic and at goal continue the plavix Benign ess ential hypertension 9601306 I10 condition chroinc and at goal continue the norvasc and lisinopril Benign pro static hyperplasia without outflow obstruction 966944798 N40.0 condition chronic nad at goal continue hte finasterid e and the doxazin Hypercholesterolemia 136 01980 E78.00 condition chroinc and at goal continue hte atorvastat in and zetia [id number] [facility] [place] [facility] [place] [address] [facility] [address] [facility] [place] [address] 03/25/2024 10:50:14 03/26/2024 15:44:31 Benign essential hypertension 2614424 I10 condition chroinc and at goal continue the norvasc and lisinopril Benign pro static hyperplasia without outflow obstruction 119199777 N40.0 condition chronic nad at goal continue hte finasterid e and the doxazin Chronic ob structive pulmonary disease 45180022 J44.9 conditoin chroin cand not at goal order albuterol inhaler with [address] pending Hypercholesterolemia 136 97315 E78.00 condition chroinc and at goal continue hte atorvastat in and zetia Atheroscle rosis of coronary artery without angina pectoris 1685562346 80367 I25.10 conditon chronic and at goal continue the plavix Overweight 726879103 E66 .3 Health Concerns Section Related Observation LastModified by Organization Detai ls LastModified Time None Recorded Concern Status LastModified by Organization Details LastModified Time None Recorded Advance Directives Directive None Recorded Payers Encounter Date Sequence Insurance Name Policy Number Policy Nava Covered Member ID Nava Member ID Guarantor Name 10/02/2022 1 [place] Gene H Young [id number] Gene Young 10/02/2022 2 [employer] (MEDICARE SUPPLEMENT) Gene Young [id number] Gene Young 12/24/2023 1 [place] Gene H Young [id number] Gene Young 12/24/2023 2 [employer] (MEDICARE SUPPLEMENT) Gene Young [id number] Gene Young 03/25/2024 1 [place] Gene H Young [id number] Gene Young 03/25/2024 2 [employer] (MEDICARE SUPPLEMENT) Gene Young [id number] Gene Young Notes Date Note Type Note Provider Name and Address Organization Details Recorded Time 10/02/2022 text/html returns to the office for repeat evaluation states that the htn and the lipids are under control the cad is under control the bph is under control taking his meds as directed. taking his meds as directed. labs look great cancelled the colonoscopy Stewart Lipscomb MD Attn: Accounting,[address] [facility], [place], [address], [facility] 10/02/2022 13:47:36 12/24/2023 text/html states that he s ob with activity the cad is unde control adn the htn is under conrol the bph is under control and hte chol is under control Stewart Lipscomb MD Attn: Accounting[address] [facility], [place], [address], [facility] 12/24/2023 19:08:13 03/25/2024 text/html states that he i s doing good and the cad is under control the htn is under control the bph is under contorl adn the copd and the chol is under control Radha ware, [place] - [facility] 05/29/2024 10:10:05
--- OUTSIDE RECORDS SUMMARY | 2024-08-05 11:54 | XMS_ITS | Encounter Summary ---
Author Organization [facility] Facility Care Team Providers Care Career And Transition Teacher Name Role Phone Stewart Lipscomb MD Primary Care Provider [phone] No, Physician Primary Care Provider [phone] Stewart Lipscomb MD Primary Care Provider [phone] Encounter Details Date Type Department Care Team (Latest Contact Info) Description 02/05/2017 Orders Only [facility] ProviderRob MD [address] [place] [address] Social History Tobacco Use Types Packs/Day [...] Procedure Name Priority Date/Time Associated Diagnosis Comments CARDIOLOGY REPORT 02/06/2017 12: 00 AM CDT documented in this encounter Results * CARDIOLOGY REPORT (02/06/2017 12:00 AM CDT) Anatomical Region Laterality Modality Other Narrative 02/06/2017 12:00 AM CDT Ordered by an unspecified provider. Historical Provider [facility] JASKARAN CABA Final Result documented in this encounter Visit Diagnoses Not on filedocumented in this encounter Care Teams Career And Transition Teacher Relationship Specialty Start Date End Date Stewart Lipscomb MD PCP - General Family Medicine 04/04/18 12/17/22 No, Physician PCP - General 03/25/23 07/11/23 Stewart Lipscomb MD PCP - General Family Medicine 07/12/23 documented as of this encounter
--- OUTSIDE RECORDS SUMMARY | 2024-08-05 11:54 | XMS_ITS | Encounter Summary ---
Author Organization [facility] Facility Care Team Providers Care Financial Representative Name Role Phone Stewart Lipscomb MD Primary Care Provider [phone] No, Physician Primary Care Provider [phone] Stewart Lipscomb MD Primary Care Provider [phone] Encounter Details Date Type Department Care Team (Latest Contact Info) Description 04/18/2017 Orders Only [facility] ProviderRob MD [address] [place] [address] Social History Tobacco Use Types Packs/Day [...] Date/Time Associated Diagnosis Comments SCAN - LABS 04/23/2017 12:00 AM CDT documented in this encounter Results * SCAN - LABS (04/23/2017 12:00 AM CDT) Narrative 04/23/2017 12:00 AM CDT Ordered by an unspecified provider. Historical Provider Final Res ult documented in this encounter Visit Diagnoses Not on filedocumented in this encounter Care Teams Financial Representative Relationship Specialty Start Date End Date Stewart Lipscomb MD PCP - General Family Medicine 04/04/18 12/17/22 No, Physician PCP - General 03/25/23 07/11/23 Stewart Lipscomb MD PCP - General Family Medicine 07/12/23 documented as of this encounter
--- OUTSIDE RECORDS SUMMARY | 2024-08-05 11:54 | XMS_ITS | Encounter Summary ---
Author Organization [facility] Facility Care Team Providers Care Digital Imaging Technician Name Role Phone Stewart Lipscomb MD Primary Care Provider [phone] No, Physician Primary Care Provider [phone] Stewart Lipscomb MD Primary Care Provider [phone] Encounter Details Date Type Department Care Team (Latest Contact Info) Description 02/27/2018 Orders Only [facility] ProviderRob MD [address] [place] [address] Social History Tobacco Use Types Packs/Day [...] Date/Time Associated Diagnosis Comments SCAN - PATHOLOGY 03/04/2018 12:0 0 AM CDT documented in this encounter Results * SCAN - PATHOLOGY (03/04/2018 12:00 AM CDT) Narrative 03/04/2018 12:00 AM CDT Ordered by an unspecified provider. Historical Provider Final Res ult documented in this encounter Visit Diagnoses Not on filedocumented in this encounter Care Teams Digital Imaging Technician Relationship Specialty Start Date End Date Stewart Lipscomb MD PCP - General Family Medicine 04/04/18 12/17/22 No, Physician PCP - General 03/25/23 07/11/23 Stewart Lipscomb MD PCP - General Family Medicine 07/12/23 documented as of this encounter
== END 2024-08-05 11:00 | disposition home or self-care (01) ==
PROVIDERS: PCP Family Medicine; Visit Provider Internal Medicine Pulmonary Disease
DX: J44.89 Other specified chronic obstructive pulmonary disease (principal); R91.8 Other nonspecific abnormal finding of lung field
CPT/HCPCS: 71250

== ENCOUNTER 2024-12-03 06:55 | Outpatient (CLI) | payer MEDICARE, SELFPAY ==
--- OUTSIDE RECORDS SUMMARY | 2024-12-03 07:00 | XMS_ITS | Encounter Summary ---
Author Organization [facility] Facility Care Team Providers Care Sample Patternmaker Name Role Phone Stewart Lipscomb MD Primary Care Provider [phone] No, Physician Primary Care Provider [phone] Stewart Lipscomb MD Primary Care Provider [phone] Encounter Details Date Type Department Care Team (Latest Contact Info) Description 11/29/2017 Orders Only [facility]CON[facility] ProviderRob MD [address] [place] [address] Social History Tobacco Use Types Packs/Day [...] on filedocumented in this encounter Care Teams Sample Patternmaker Relationship Specialty Start Date End Date Stewart Lipscomb MD PCP - General Family Medicine 04/04/18 12/17/22 No, Physician PCP - General 03/25/23 07/11/23 Stewart Lipscomb MD PCP - General Family Medicine 07/12/23 documented as of this encounter
--- OUTSIDE RECORDS SUMMARY | 2024-12-03 07:00 | XMS_ITS | Encounter Summary ---
Author Organization [facility] Care Team Providers Care Ceramic Tiler Name Role Phone Stewart Lipscomb MD Primary Care Provider [phone], Physician Primary Care Provider [phone] Stewart Lipscomb MD Primary Care Provider [phone] Encounter Details Date Type Department Care Team (Latest Contact Info) Description 07/15/2015 Orders Only [facility] ProviderRob MD [address] [place] [address] Social History Tobacco Use Types Packs/Day [...] on filedocumented in this encounter Care Teams Ceramic Tiler Relationship Specialty Start Date End Date Stewart Lipscomb MD PCP - General Family Medicine 04/04/18 12/17/22 No, Physician PCP - General 03/25/23 07/11/23 Stewart Lipscomb MD PCP - General Family Medicine 07/12/23 documented as of this encounter
--- OUTSIDE RECORDS SUMMARY | 2024-12-03 07:00 | XMS_ITS | Encounter Summary ---
Author Organization [facility] Facility Care Team Providers Care Butt Presser Name Role Phone Stewart Lipscomb MD Primary Care Provider [phone], Physician Primary Care Provider Stewart Lipscomb MD Primary Care Provider [phone] Encounter Details Date Type Department Care Team (Latest Contact Info) Description 04/18/2017 Orders Only [facility] ProviderRob MD [address] [place] [address] Social History Tobacco Use Types Packs/Day [...] on filedocumented in this encounter Care Teams Butt Presser Relationship Specialty Start Date End Date Stewart Lipscomb MD PCP - General Family Medicine 04/04/18 12/17/22 No, Physician PCP - General 03/25/23 07/11/23 Stewart Lipscomb MD PCP - General Family Medicine 07/12/23 documented as of this encounter
--- OUTSIDE RECORDS SUMMARY | 2024-12-03 07:00 | XMS_ITS | Data Portability ---
Author Organization [facility]BAR[facility] Address [address] [place] [address] Assessment No assessment recorded. Plan of Treatment Reminders Order Date Submit Date Provider Last Modified By Organization Details Last Modified Time Details Appointments None recorded. Lab None recorded. Referral None recorded. Procedures None recorded. Surgeries None recorded. Imaging None recorded. Medication Orders albuterol sulfate HFA 90 mcg/actuat ion aerosol inhaler 2023 024 [email or web address] [facility] [address] [facility], [place], [address], 14:19:37 Patient TargetsNo targets recorded. Patient Instructions Encounter Date Encounter Id Patient Instructions Last Modified By Organization Details Last Modified Time 03/25/2024 [id number] A healthy lifestyle: care instructions [email or web address] Not available 05/29/2024 10:39:29 Reason for Referral None Reported. Results Created Date Observation Date Name Description Value Unit Range Abnormal Flag Note LastModifiedBy Organization Detail LastModifiedTime 11/03/1911/02/2022 cardi ac stres s test No observ ation record ed. [facility] Cardiovascula r Department [address] [facility] , [place], [address], 11/05/2022 08:29:17 03/25/20 24 01/03/2024 CT, chest , w/o contr ast No observ ation record ed. [facility] [address], [place], [address], 03/25/2024 13:44:50 Result Notes None recorded. 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 Medical Equipment None Reported. [...] Updated DateTime 3 182.88 cm 28.5 kg/m2 24868.4 g 97.6 [degF] 98 % 98 % 62 /min 122 mm[Hg] 60 mm[Hg] Antonia Guo MA [facility] 3 11:07:30 Date Recorded Body weight Respiratory rate Body temperature Body mass index (BMI) Body height Systolic blood pressure Diastolic blood pressure Provider Name and Address Organization Details Last Updated DateTime 4 55194.4 4 g 16 /min 97.6 [degF] 27.8 kg/m2 182.88 cm 122 mm[Hg] 70 mm[Hg] Radha Joshua [place] - [place] 4 11:19:17 Date Recorded Body height Body mass index (BMI) Body weight Oxygen saturation Oxygen saturation in Arterial blood by Pulse oximetry Heart rate Respiratory rate Systolic blood pressure Diastolic blood pressure Provider Name and Address Organization Details Last Updated DateTime 4 182.88 cm 28.1 kg/m2 24417.6 2 g 98 % 98 % 68 /min 16 /min 124 mm[Hg] 78 mm[Hg] Ariadne Sanchez MA [facility] 11:03:20 Social History Question Answer Notes LastModified by Organizat ion Details LastModified Time Tobacco Smoking Status Never Smoker Antonia Guo MA [facility], [place] - [facility] 10/02/2022 11:05:59 What Is Your Level Of Caffeine Consumption? None [email or web address] Information not available 12/24/2023 What Was The Date Of Your Most Recent Tobacco Screening? 03/25/2024 [email or web address] Information not available 03/25/2024 Has Tobacco Cessation Counseling Been Provided? No Information not available 12/24/2023 Sex: Unknown Functional Status Question Answer Note LastModified by Organizat ion Details LastModified Time Do you use any illicit or recreational drugs? No [email or web address] Information not available 12/24/2023 Do you or have you ever used any other forms of tobacco or nicotine? No [email or web address] Information not available 12/24/2023 What is your level of alcohol consumption? None [email or web address] Information not available 10/02/2022 Mental Status None recorded. Family History Relationship Description Onset Age of this Age Resolved Age Notes LastModified by Organization Details LastModified Time Father Coronary arterioscler osis [email or web address] Not available 2023 11:20:28 Father Diabetes mellitus [email or web address] Not available 2023 11:20:36 Father Myocardial infarction [email or web address] Not available 12/23 11:20:48 Medical History Condition Response Coronary Artery Disease N Other N High Blood Pressure N Atrial Fibrillation N Thyroid Problems N Kidney or Bladder Problems N GI Problems N Depression N COPD N Blood Clots N Have you had a mammogram in the last yea r? N Skin Problems N Eating Disorder N Anemia N Heart Attack ([place]) N Anxiety Disorder N Diabetes N Muscle, Joint, or Bone Problems N Arthritis N Seizures/Epilepsy N Have you had a colonoscopy in the last 1 0 years? N Acid Reflux (GERD) N Cancer N Stroke Y Asthma N Allergies N Have you had a PSA blood test in the las t year? N ADHD N Substance Abuse N High Cholesterol N Hepatitis N Liver Disease Y Schizophrenia N Headaches N Heart Failure N Osteoporosis N Past Encounters Encounter ID Performer Location Encounter Start Date Encounter Closed Date Diagnosis/Indication Diagnosis SNOMED-CT Code Diagnosis ICD10 Code Diagnosis Note [id number] Stewart Lipscomb MD [facility] [address] [place] [address] 10/02/2022 10:56:40 10/03/2022 11:41:47 Benign essential hypertension 0407086 I10 condition chroinc and at goal continue the norvasc and lisinopril Hypercholesterolemia 136 45686 E78.00 condition chroinc and at goal continue hte atorvastat in and zetia Benign pro static hyperplasia without outflow obstruction 409670352 N40.0 condition chronic nad at goal continue hte finasterid e and the doxazin Atheroscle rosis of coronary artery without angina pectoris 3999203884 38241 I25.10 conditon chronic and at goal continue the plavix [id number] Stewart Lipscomb MD [facility] [address] [place] [address] 12/24/2023 10:49:48 12/27/2023 13:56:43 Chronic obstructive pulmonary disease 74467218 J44.9 conditoin chroin cand not at goal order albuterol inhaler with [address] chest and pft Atheroscle rosis of coronary artery without angina pectoris 9944091944 39017 I25.10 conditon chronic and at goal continue the plavix Benign ess ential hypertension 2951024 I10 condition chroinc and at goal continue the norvasc and lisinopril Benign pro static hyperplasia without outflow obstruction 394468747 N40.0 condition chronic nad at goal continue hte finasterid e and the doxazin Hypercholesterolemia 136 09991 E78.00 condition chroinc and at goal continue hte atorvastat in and zetia [id number] Stewart Lipscomb MD [facility] [place] [address] [place] [address] 03/25/2024 10:50:14 03/26/2024 15:44:31 Benign essential hypertension 6923439 I10 condition chroinc and at goal continue the norvasc and lisinopril Benign pro static hyperplasia without outflow obstruction 927398144 N40.0 condition chronic nad at goal continue hte finasterid e and the doxazin Chronic ob structive pulmonary disease 60237973 J44.9 conditoin chroin cand not at goal order albuterol inhaler with [address] pending Hypercholesterolemia 136 70073 E78.00 condition chroinc and at goal continue hte atorvastat in and zetia Atheroscle rosis of coronary artery without angina pectoris 7344708042 52620 I25.10 conditon chronic and at goal continue the plavix Overweight 282168622 E66 .3 Health Concerns Section Related Observation LastModified by Organization Detai ls LastModified Time None Recorded Concern Status LastModified by Organization Details LastModified Time None Recorded Advance Directives Directive None Recorded Payers Insurance Date Sequence Insurance Name Policy Number Policy Nava Covered Member ID Nava Member ID Guarantor Name 03/24/2024 [place] Gene H Young [id number] Gene Young 03/24/2024 1 [place] Gene H Young [id number] Gene Young 03/24/2024 [place] Gene H Young [id number] Gene Young 12/24/2023 2 [employer] (MEDICARE SUPPLEMENT) Gene Young [id number] Gene Young Notes Date Note Type Note [...] colonoscopy Stewart Lipscomb MD Attn: Accounting,[address] [facility], [place], [address], [facility] [place] 10/02/2022 13:47:36 12/24/2023 text/html states that he s ob with activity the cad is unde control adn the htn is under conrol the bph is under control and hte chol is under control Stewart Lipscomb MD Attn: Account[employer],[address] [facility], [place], [address], [place] 12/24/2023 19:08:13 03/25/2024 text/html states that he i s doing good and the cad is under control the htn is under control the bph is under contorl adn the copd and the chol is under control Radha ware, [place] - [place] 05/29/2024 10:10:05
--- OUTSIDE RECORDS SUMMARY | 2024-12-03 07:00 | XMS_ITS | Referral Summary ---
Author Organization [facility] Address [address] [place] [address] Care Team Providers Care Nutritional Services Director Name Role Phone Stewart Lipscomb MD Primary Care Provider [phone] Encounters Date Type Department Care Team Description 11/20/2024 4:33 PM CDT - 11/20/2024 11:59 PM CDT Hospital Encounter [facility] CT [address] [place] [id number] Restrictive lung disease Discharge Disposition: Discharge to home or self care 11/10/2024 Orders Only [facility] Pulmonology [address] [facility] [address] [place] [phone] Ehsan Cutler MD Dyspnea on exertion (Primary Dx) 10/27/2024 11:55 AM CDT Lab [facility] Medical Office Building [address] [place] [id number] Restrictive lung disease 10/27/2024 10:45 AM CDT Office Visit [facility] Pulmonary [address] [place] [phone] Ehsan Cutler MD YESENIA (obstructive sleep apnea) (Primary Dx); Panlobular emphysema (HCC); Pulmonary nodules; Restrictive lung disease 10/13/2024 10:38 AM CDT - 10/13/2024 11:59 PM CDT Hospital Encounter [facility] Respiratory Therapy [address] [place] [id number] Panlobular emphysema (HCC) Discharge Disposition: Discharge to home or self care 09/07/2024 Telephone [facility] [address] [phone] Ehsan Cutler MD Orders Only 09/07/2024 Orders Only [facility] Outside Images [address] [place] [address] Transcribed Order, Provider 09/07/2024 10:45 AM CDT Office Visit [facility] [address] [phone] Shaye Mead NP YESENIA (obstructive sleep apnea) (Primary Dx); Panlobular emphysema (HCC); Pulmonary nodules from Last 3 Months Allergies No known active allergies Medications doxazosin (CARDURA) 4 mg tablet Take 1 tablet (4 mg total) by mouth nightly 8 Active finasteride (PROSCAR) 5 mg tablet Take 1 tablet (5 mg total) by mouth daily 8 Active omega 8-oba-rcp-fish oil 360-1,200 mg capsule,delayed release(DR/EC) Take 2,400 [...] 30 tablet 11 5 07/27/19 26 Active fluticasone-ume clidin-vilanter (TRELEGY ELLIPTA) 100-62.5-25 mcg inhaler Inhale 1 puff daily 60 each 5 5 Active Active Problems Problem Noted Date Diagnosed Date Restrictive lung disease 10/27/2024 Assessment & Plan (10/27/2024 11:45 AM CDT): The patient does have restrictive lung disease and dyspnea on exertion and his DLCO has decreased compared to March 2020. I will check a CBC as well as a high-resolution chest CT to evaluate for interstitial lung disease. He will follow up here in 1 month. Panlobular emphysema 07/27/2024 Assessment & Plan (10/27/2024 11:45 AM CDT): The patient has no evidence of obstruction on recent PFTs. He has an albuterol inhaler that he is using on a PRN basis and has not noticed any improvement in his dyspnea on exertion. Assessment & Plan (09/07/2024 11:31 AM CDT): Due to the patient having constipation with Trelegy I will order Breo one inhalation once a day. The patient will continue with his albuterol inhaler as needed up to 4 times a day for shortness of breath. The patient will continue with Claritin and Flonase. I have also ordered a pulmonary function test. Assessment & Plan (07/27/2024 11:15 AM CUTTER FINISHER): Due to the patient having shortness of [...] cough. Pulmonary nodules 07/27/2024 Assessment & Plan (10/27/2024 11:45 AM CDT): We will follow the pulmonary nodules annually. Assessment & Plan (09/07/2024 11:08 AM CDT): I have ordered another CT scan for July of 2025. The patient did stop smoking over 40 years ago. The patient original pulmonary nodules was found in December of 2023. Assessment & Plan (07/27/2024 11:15 AM CUTTER FINISHER): I have ordered CT scan to compare the pulmonary nodules. The patient is going to obtain a disc from [facility] so that we can compare images. Chest pressure 10/10/2022 YESENIA (obstructive sleep apnea) 05/08/2021 Assessment & Plan (10/27/2024 11:44 AM CDT): The patient continues to benefit from the auto titrating CPAP unit with a range of 5-15 cm water pressure. His DME company is [employer]. Assessment & Plan (09/07/2024 11:08 AM CDT): Patient continue to wear CPAP at auto titrating range of 5-15 cm water pressure while sleeping. His DME is [employer]. Assessment & Plan (07/27/2024 11:14 AM CUTTER FINISHER): Due to ongoing symptoms, the patient will [...] pressure to treat obstructive sleep apnea. DME [employer]. The patient has received his new CPAP from [employer]. Assessment & Plan (05/08/2021 10:52 AM CUTTER FINISHER): The patient will continue with auto titrating CPAP therapy set at 5-15 cm water pressure to treat obstructive sleep apnea. Patient denied need for supplies. DME [employer]. The patient and I discussed the recall [...] pursue at this time. Stop metoprolol. Continue [place] 3 fatty acids check magnesium level. Discussed association with cardiomyopathy and would consider if EF deteriorates over time Bradycardia 12/10/2018 Assessment & Plan (12/10/2018 11:04 AM CDT): Mild. Stop metoprolol. Check thyroid panel. 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 Assessment & Plan (12/10/2018 11:02 AM CDT): Not secondary to PVCs. Dyslipidemia 10/03/2018 04/04/2021 Immunizations Immunization Administration Dates Next Due Influenza, Quadrivalent, Sweetie [...] Sign Reading Time Taken Comments Blood Pressure 114/62 10/27/2024 11:04 AM CDT Pulse 68 10/27/2024 11:04 AM CDT Temperature 36.1 C (97 F) 10/27/2024 11:04 AM CDT Respiratory Rate 18 10/27/2024 11:04 AM CDT Oxygen Saturation 94% 10/27/2024 11:04 AM CDT Inhaled Oxygen Concentration - - Weight 94.8 kg (209 lb) 10/27/2024 11:04 AM CDT Height 182.9 cm (6') 10/27/2024 11:04 AM CDT Body Mass Index 28.35 10/27/2024 11:04 AM CDT Plan of Treatment Not on file Procedures Procedure Name Priority Date/Time Associated Diagnosis Comments CT CHEST HIGH RESOLUTION WO CONTRAST Schedule Routine, Read Routine (OP Routine) 11/20/2024 5:05 PM CDT Restrictive lung disease DIFFERENTIAL AUTO Routine 10/27/2024 11: 58 AM CDT Restrictive lung disease CBC WITH AUTO DIFFERENTIAL Routine 10/27/2024 11:58 AM CDT Restrictive lung disease PULMONARY FUNCTION TEST (PFT) Routine 10/13/2024 11:29 AM CDT Panlobular emphysema (HCC) from Last 3 Months Results * CT Chest High Resolution WO Contrast (11/20/2024 5:05 PM CDT) Anatomical Region Laterality Modality Chest N/A Computed Tomogra phy 11/30/2024 1:55 PM CDT Narrative 11/30/2024 2:01 PM CDT EXAM DESCRIPTION: CT CHEST HIGH RESOLUTION WO CONTRAST REASON FOR STUDY: Dyspnea, chronic Dyspnea on exertion for 2 yrs, restrictive lung disease. No sx hx TECHNIQUE: CT scan of the chest performed without intravenous contrast using helical scanning technique. Inspiratory and expiratory images were acquired. Prone inspiratory images were acquired. Reconstructed coronal and sagittal MPR images reviewed. All images stored on PACS. Automated exposure control was used as a dose optimization technique for this examination. COMPARISON: None FINDINGS: LUNGS: There are scattered reticulations with interlobular septal thickening and ground-glass opacities noted, which is most significant in the periphery of the bilateral lungs without definite evidence of significant traction bronchiectasis or honeycombing, and therefore findings are concerning for chronic nonspecific interstitial changes. There is mild mosaic attenuation of the lungs on the expiratory sequence, which is concerning for air trapping/reactive small airways disease. There is mild biapical pleural thickening and scarring. There is no definite evidence of a pneumothorax. The central airways are grossly patent. There are mild emphysematous changes of lungs with scattered mild subsegmental atelectasis and scarring. There is no definite evidence of a focal consolidation or pleural effusion. There are scattered pulmonary nodules noted, which are overall grossly unchanged since 01/03/2024. For example, there is a stable irregular subpleural 0.5 cm pulmonary nodule in the lateral right upper lobe (axial image 45). There is a stable irregular subpleural 0.6 cm pulmonary nodule in the lateral right upper lobe (axial image 48). There is a stable subpleural 0.7 cm pulmonary nodule in the anterolateral right middle lobe (axial image 57). There is a stable subpleural 0.6 cm pulmonary nodule in the posterolateral right lower lobe (axial image 77). There is a stable 0.3 cm pulmonary nodule in the posterior left upper lobe abutting the left major fissure (axial image 18). There is stable 0.5 cm pulmonary nodule in the anterior left upper lobe (axial image 45). There is a stable subpleural 0.4 cm pulmonary nodule in the posterior left lower lobe (axial image 58). There is stable 0.5 cm pulmonary nodule in the posterior left lower lobe (axial image 64). MEDIASTINUM/JACEK: The heart size is normal. There is no definite evidence of a pericardial effusion. There are atherosclerotic changes of the thoracic aorta and coronary vessels. There is no definite unenhanced CT evidence of mediastinal, hilar, or axillary lymphadenopathy. There are scattered subcentimeter mediastinal lymph nodes noted with the largest measuring 0.7 cm in the subcarinal region (axial image 49). CORONARY ARTERY CALCIFICATION: Present. CHEST WALL: No masses. No subcutaneous air. HARDWARE/LINES/TUBES: None. UPPER ABDOMEN: There is a small hiatal hernia. The bilateral adrenal glands are grossly stable and unremarkable. There is a stable mildly lobulated cyst in the left hepatic lobe measuring 2.3 cm, which does not require follow-up imaging. MUSCULOSKELETAL: There is mild osteopenia with degenerative changes of the spine. OTHER: No other significant finding. IMPRESSION: Scattered reticulations with interlobular septal thickening and ground-glass opacities noted, which is most significant in the periphery of the bilateral lungs without definite evidence of significant traction bronchiectasis or honeycombing, and therefore findings are concerning for chronic nonspecific interstitial changes. Mild emphysematous changes of lungs with scattered mild subsegmental atelectasis and scarring. No definite evidence of focal consolidation. Mild mosaic attenuation of the lungs on the expiratory sequence, which is concerning for air trapping/reactive small airways disease. Scattered pulmonary nodules noted, which are overall grossly unchanged since 01/03/2024. Please see below for follow-up recommendations per Fleischner criteria. Recent guidelines by the Fleischner Society (Radiology 023400,2017) divides patient into low vs. high risk (for example, patients who smoke are considered high risk) and provides followup recommendations as follows: SOLITARY PULMONARY NODULE: Patients considered LOW RISK for lung cancer and a solitary nodule equal to or larger than 6 mm or equal to or less than 8 mm in diameter require follow-up CT at 6-12 months, then consider CT at 18-24 months. In patients at HIGHER RISK require follow-up CT at 6-12 months, then CT at 18-24 months. MULTIPLE PULMONARY NODULES: Patients considered LOW RISK for lung cancer and multiple nodules equal to or larger than 6 mm or equal to or less than 8 mm in diameter require follow-up CT at 3-6 months, then consider CT at 18-24 months. Patients at HIGHER RISK require follow-up CT at 3-6 months, then CT at 18-24 months. Note: These recommendations do not apply to lung cancer screening, patients with immunosuppression, or patients with known primary cancer. http://pubs.rsna.org/doi/pdf/10.1148/radiol.3210489550 THIS IS AN ELECTRONICALLY VERIFIED FINAL REPORT 11/30/2024 2:01 PM - Electronically signed by Sanjay Davis D.O. PS: PATRICIA Report ID: [id number] Reading Location: [id number] Procedure Note Sanjay Davis, DO - 11/30/2024 EXAM DESCRIPTION: CT CHEST HIGH RESOLUTION WO CONTRAST REASON FOR STUDY: Dyspnea, chronic Dyspnea on exertion for 2 yrs, restrictive lung disease. No sx hx TECHNIQUE: CT scan of the chest performed without intravenous contrastusing helical scanning technique. Inspiratory and expiratory images wereacquired. Prone inspiratory images were acquired. Reconstructed coronal andsagittal MPR images reviewed. All images stored on PACS. Automated exposurecontrol was used as a dose optimization technique for this examination. COMPARISON: None FINDINGS: LUNGS: There are scattered reticulations with interlobularseptal thickening and ground-glass opacities noted, which is most significant inthe periphery of the bilateral lungs without definite evidence of significant traction bronchiectasis or honeycombing, and therefore findings areconcerning for chronic nonspecific interstitial changes. There is mild mosaic attenuation of the lungs on the expiratory sequence, which is concerningfor air trapping/reactive small airways disease. There is mild biapical pleural thickening and scarring. There is nodefinite evidence of a pneumothorax. The central airways are grossly patent.There are mild emphysematous changes of lungs with scattered mild subsegmental atelectasis and scarring. There is no definite evidence of a focal consolidation or pleural effusion. There are scattered pulmonary nodules noted, which are overall grossly unchanged since 01/03/2024. For example, there is a stable irregular subpleural 0.5 cm pulmonary nodule in the lateral right upper lobe (axial image 45). There is a stable irregular subpleural 0.6 cm pulmonary nodulein the lateral right upper lobe (axial image 48). There is a stablesubpleural 0.7 cm pulmonary nodule in the anterolateral right middle lobe (axialimage 57). There is a stable subpleural 0.6 cm pulmonary nodule in the posterolateral right lower lobe (axial image 77). There is a stable 0.3cm pulmonary nodule in the posterior left upper lobe abutting the left major fissure (axial image 18). There is stable 0.5 cm pulmonary nodule in the anterior left upper lobe (axial image 45). There is a stable subpleural0.4 cm pulmonary nodule in the posterior left lower lobe (axial image 58).There is stable 0.5 cm pulmonary nodule in the posterior left lower lobe (axial image 64). MEDIASTINUM/JACEK: The heart size is normal. There is no definiteevidence of a pericardial effusion. There are atherosclerotic changes of thethoracic aorta and coronary vessels. There is no definite unenhanced CT evidence of mediastinal, hilar, oraxillary lymphadenopathy. There are scattered subcentimeter mediastinal lymphnodes noted with the largest measuring 0.7 cm in the subcarinal region (axialimage 49). CORONARY ARTERY CALCIFICATION: Present. CHEST WALL: No masses. No subcutaneous air. HARDWARE/LINES/TUBES: None. UPPER ABDOMEN: There is a small hiatal hernia. The bilateral adrenalglands are grossly stable and unremarkable. There is a stable mildly lobulatedcyst in the left hepatic lobe measuring 2.3 cm, which does not requirefollow-up imaging. MUSCULOSKELETAL: There is mild osteopenia with degenerative changes ofthe spine. OTHER: No other significant finding. IMPRESSION: Scattered reticulations with interlobular septal thickening andground-glass opacities noted, which is most significant in the periphery of thebilateral lungs without definite evidence of significant traction bronchiectasis or honeycombing, and therefore findings are concerning for chronicnonspecific interstitial changes. Mild emphysematous changes of lungs with scattered mild subsegmental atelectasis and scarring. No definite evidence of focal consolidation. Mild mosaic attenuation of the lungs on the expiratory sequence, which is concerning for air trapping/reactive small airways disease. Scattered pulmonary nodules noted, which are overall grossly unchangedsince 01/03/2024. Please see below for follow-up recommendations per Fleischner criteria. Recent guidelines by the Fleischner Society (Radiology 613353,2017)divides patient into low vs. high risk (for example, patients who smoke areconsidered high risk) and provides followup recommendations as follows: SOLITARY PULMONARY NODULE: Patients considered LOW RISK for lung cancerand a solitary nodule equal to or larger than 6 mm or equal to or less than 8 mmin diameter require follow-up CT at 6-12 months, then consider CT at 18-24 months. In patients at HIGHER RISK require follow-up CT at 6-12 months,then CT at 18-24 months. MULTIPLE PULMONARY NODULES: Patients considered LOW RISK for lung cancerand multiple nodules equal to or larger than 6 mm or equal to or less than 8mm in diameter require follow-up CT at 3-6 months, then consider CT at 18-24months. Patients at HIGHER RISK require follow-up CT at 3-6 months, then CT at18-24 months. Note: These recommendations do not apply to lung cancer screening,patients with immunosuppression, or patients with known primary cancer. http://pubs.rsna.org/doi/pdf/10.1148/radiol.4088365975 THIS IS AN ELECTRONICALLY VERIFIED FINAL REPORT 11/30/2024 2:01 PM - Electronically signed by Sanjay Davis D.O. PS: PS Report ID: [id number] Reading Location: [place] [address] Ehsan Cutler MD IMG CT PROCEDURES Final R esult * Differential, auto (10/27/2024 11:58 AM CDT) Pathologist [facility] Neutrophil abs 5.29 1.50 - 6.50 K/cumm Comment:Testing performed by : [address] [address] Imm gran abs 0.01 0.00 - 0.10 K/cumm LOLA Comment:Testing performed by : [address] [address] Lymphocyte abs 3.00 0.80 - 3.30 K/cumm LOLA Comment:Testing performed by : [address] [address] Monocyte abs 0.79 0.20 - 0.80 K/cumm LOLA Comment:Testing performed by : [address] [address] Eosinophil abs 0.21 0.00 - 0.50 K/cumm LOLA Comment:Testing performed by : [address] [address] Basophil abs 0.05 0.00 - 0.10 K/cumm LOLA Comment:Testing performed by : [address] [address] Neutrophil pct 56.7 % LOLA Comment: Interpretive Data Percent cell count reference ranges are not reported, since discordance with absolute values may lead to misinterpretation of CBC data. Current Interpretive Data was last revised on 2017. Testing performed by: [address] [address] Imm gran pct 0.1 % [facility] Comment: Interpretive Data Percent cell count reference ranges are not reported, since discordance with absolute values may lead to misinterpretation of CBC data. Current Interpretive Data was last revised on 2017. Testing performed by: [address] [address] Lymphocyte pct 32.1 % [facility] Comment: Interpretive Data Percent cell count reference ranges are not reported, since discordance with absolute values may lead to misinterpretation of CBC data. Current Interpretive Data was last revised on 2017. Testing performed by: [address] [address] Monocyte pct 8.4 % [facility] Comment: Interpretive Data Percent cell count reference ranges are not reported, since discordance with absolute values may lead to misinterpretation of CBC data. Current Interpretive Data was last revised on 2017. Testing performed by: [address] [address] Eosinophil pct 2.2 % [facility] Comment: Interpretive Data Percent cell count reference ranges are not reported, since discordance with absolute values may lead to misinterpretation of CBC data. Current Interpretive Data was last revised on 2017. Testing performed by: [address] [address] Basophil pct 0.5 % [facility] Comment: Interpretive Data Percent cell count reference ranges are not reported, since discordance with absolute values may lead to misinterpretation of CBC data. Current Interpretive Data was last revised on 2017. Testing performed by: [address] [address] Blood 10/27/2024 11:5 8 AM CDT 10/27/2024 12:39 PM CDT Ehsan Cutler MD LAB BLOOD ORDERABLES Stephanie [facility]co [facility] [address] [facility] Department [place] [address] * (ABNORMAL) CBC with auto differential (10/27/2024 11:58 AM CDT) [facility] Signature WBC 9.35 3.80 - 9.90 K/cumm Comment:Testing performed by : [address] [address] Hgb 13.9 13.0 - 17.5 g/dL LOLA Comment:Testing performed by : [address] [address] Hct 42.2 38.9 - 50.3 % LOLA Comment:Testing performed by : [address] [address] Plt 227 150 - 400 K/cumm LOLA Comment:Testing performed by : [address] [address] MPV 9.4 9.1 - 12.3 fL LOLA Comment:Testing performed by : [address] [address] RBC 4.27(L) 4.30 - 5.80 M/cumm LOLA Comment:Testing performed by : [address] [address] MCV 98.8(H) 81.3 - 96.4 fL LOLA Comment:Testing performed by : [address] [address] MCH 32.6 27.1 - 33.3 pg LOLA Comment:Testing performed by : [address] [address] MCHC 32.9 32.3 - 35.7 g/dL LOLA Comment:Testing performed by : [address] [address] RDW CV 13.2 11.1 - 14.9 % LOLA Comment:Testing performed by : [address] [address] RDW SD 47.8 35.7 - 48.1 fL LOLA MONTESINOS Comment:Testing performed by : [facility], [address] [place] [address]., [address] NRBC abs 0.00 0.00 - 0.01 K/cumm LOLA MONTESINOS Comment:Testing performed by : [facility], [address] [place] [address]., [address] Blood 10/27/2024 11:5 8 AM CDT 10/27/2024 12:39 PM CDT us Ehsan Cutler MD LAB BLOOD ORDERABLES Stephanie l Result LOLA [facility]ONTESIN[facility] [address] [facility] Department [place] [address] * (ABNORMAL) Pulmonary Function Test - (10/13/2024 11:29 AM CDT) FVC PRE 3.63 2.85 - 5.17 L [facility] FEV1 PRE 2.83 1.98 - 3.77 L [facility] [id number] 78.06 58.41 - 87.81 % [facility] [id number]% PRE 2.70 0.69 - 3.87 L/s [facility] PEF PRE 8.21 5.78 - 9.76 L/s [facility] DLCOc SB 13.97(A) 19.18 - 33.04 ml/(min*mm Hg) [facility] DLCO/VA PRE 2.91 2.40 - 4.53 ml/(min*mm Hg*L) [facility] VA 4.80(A) 7.38 - 7.38 L [facility] TLC PRE 5.74(A) 6.38 - 8.68 L [facility] VC PRE 3.70 3.23 - 5.07 L [facility] IC PRE 2.74(A) 3.22 - 3.22 L [facility] FRC PL PRE 3.00 2.96 - 4.93 L [facility] ERV PRE 0.96(A) 0.93 - 0.93 L [facility] RV PRE 2.04(A) 2.34 - 3.69 L [facility] VTG 3.09 L [facility] RAW PRE 0.73(A) 3.06 - 3.06 cmH2O*s/L [facility] Anatomical Region Laterality Modality PFT 10/13/2024 10:4 9 AM CDT Narrative 10/13/2024 12:41 PM CDT Normal spirometry without obstruction. Lung volumes demonstrate concomitant mild restrictive ventilatory impairment. DLCO is reduced compatible with diffusion impairment. Findings can be seen with emphysema or other pulmonary vascular or pulmonary parenchymal process. Suggest clinical correlation. 6 minute walk test - ambulatory O2 assessment study was performed. Patient maintained oxygen saturation within normal range and did not require supplemental oxygen with rest or ambulation. Electronically signed by Jesus Resendiz MD, [facility] Critical [facility] Medicine [facility] Shaye Mead [employer]UCK DRIVER PFT ORDERABLES Final Re sult from Last 3 Months Insurance MEDICARE COMMERCIAL GENERIC T SENIOR SUPPLEMENT MEDICARE [employer] SENIOR SUPPLEMENT Care Teams Nutritional Services Director Relationship Specialty Start Date End Date Stewart Lipscomb MD PCP - General Family Medicine 07/12/23
--- OUTSIDE RECORDS SUMMARY | 2024-12-03 07:00 | XMS_ITS | Encounter Summary ---
Author Organization [facility] Facility Care Team Providers Care Farm Field Manager Name Role Phone Stewart Lipscomb MD Primary Care Provider [phone] No, Physician Primary Care Provider [phone] Stewart Lipscomb MD Primary Care Provider [phone] Encounter Details Date Type Department Care Team (Latest Contact Info) Description 02/21/2018 Orders Only [facility] ProviderRob MD [address] [place] [address] Social History Tobacco Use Types Packs/Day [...] on filedocumented in this encounter Care Teams Farm Field Manager Relationship Specialty Start Date End Date Stewart Lipscomb MD PCP - General Family Medicine 04/04/18 12/17/22 No, Physician PCP - General 03/25/23 07/11/23 Stewart Lipscomb MD PCP - General Family Medicine 07/12/23 documented as of this encounter
--- OUTSIDE RECORDS SUMMARY | 2024-12-03 07:00 | XMS_ITS | Encounter Summary ---
Author Organization [facility] Facility Care Team Providers Care Bulk Plant Manager Name Role Phone Stewart Lipscomb MD Primary Care Provider [phone] No, Physician Primary Care Provider [phone] Stewart Lipscomb MD Primary Care Provider Encounter Details Date Type Department Care Team (Latest Contact Info) Description 01/02/2018 Orders Only [facility]INCONV ProviderRob MD [address] [place] [address] Social History Tobacco Use Types Packs/Day [...] on filedocumented in this encounter Care Teams Bulk Plant Manager Relationship Specialty Start Date End Date Stewart Lipscomb MD PCP - General Family Medicine 04/04/18 12/17/22 No, Physician PCP - General 03/25/23 07/11/23 Stewart Lipscomb MD PCP - General Family Medicine 07/12/23 documented as of this encounter
--- OUTSIDE RECORDS SUMMARY | 2024-12-03 07:00 | XMS_ITS | Encounter Summary ---
Author Organization [facility] Facility Care Team Providers Care Clarifying Plant Operator Name Role Phone Stewart Lipscomb MD Primary Care Provider [phone] No, Physician Primary Care Provider [phone] Stewart Lipscomb MD Primary Care Provider [phone] Encounter Details Date Type Department Care Team (Latest Contact Info) Description 04/04/2016 Orders Only [facility] CLINCONV ProviderRob MD [address] [place] [address] Social History Tobacco Use Types Packs/Day [...] on filedocumented in this encounter Care Teams Clarifying Plant Operator Relationship Specialty Start Date End Date Stewart Lipscomb MD PCP - General Family Medicine 04/04/18 12/17/22 No, Physician PCP - General 03/25/23 07/11/23 Stewart Lipscomb MD PCP - General Family Medicine 07/12/23 documented as of this encounter
--- OUTSIDE RECORDS SUMMARY | 2024-12-03 07:00 | XMS_ITS | Encounter Summary ---
Author Organization [facility] Facility Care Team Providers Care Investigations Director Name Role Phone Stewart Lipscomb MD Primary Care Provider [phone] No, Physician Primary Care Provider [phone] Stweart Lipscomb MD Primary Care Provider Encounter Details Date Type Department Care Team (Latest Contact Info) Description 12/18/2017 Orders Only [facility] CLINCONV ProviderRob MD [address] [place] [address] Social History Tobacco Use Types Packs/Day [...] on filedocumented in this encounter Care Teams Investigations Director Relationship Specialty Start Date End Date Stewart Lipscomb MD PCP - General Family Medicine 04/04/18 12/17/22 No, Physician PCP - General 03/25/23 07/11/23 Stewart Lipscomb MD PCP - General Family Medicine 07/12/23 documented as of this encounter
--- OUTSIDE RECORDS SUMMARY | 2024-12-03 07:00 | XMS_ITS | Encounter Summary ---
Author Organization [facility] Facility Care Team Providers Care Custom Clothier Name Role Phone Stewart Lipscomb MD Primary Care Provider [phone] No, Physician Primary Care Provider [phone] Stewart Lipscomb MD Primary Care Provider [phone] Encounter Details Date Type Department Care Team (Latest Contact Info) Description 02/20/2018 Orders Only [facility] CLINCONV ProviderRob MD [address] [place] [address] Social History Tobacco Use Types Packs/Day [...] on filedocumented in this encounter Care Teams Custom Clothier Relationship Specialty Start Date End Date Stewart Lipscomb MD PCP - General Family Medicine 04/04/18 12/17/22 No, Physician PCP - General 03/25/23 07/11/23 Stewart Lipscomb MD PCP - General Family Medicine 07/12/23 documented as of this encounter
--- OUTSIDE RECORDS SUMMARY | 2024-12-03 07:00 | XMS_ITS | Encounter Summary ---
Author Organization [facility] Facility Care Team Providers Care Crown Assembly Machine Operator Name Role Phone Stewart Lipscomb MD Primary Care Provider No, Physician Primary Care Provider [phone] Stewart Lipscomb MD Primary Care Provider [phone] Encounter Details Date Type Department Care Team (Latest Contact Info) Description 09/05/2017 Orders Only [facility] CLINCONV ProviderRob MD [address] [place] [address] Social History Tobacco Use Types Packs/Day [...] on filedocumented in this encounter Care Teams Crown Assembly Machine Operator Relationship Specialty Start Date End Date Stewart Lipscomb MD PCP - General Family Medicine 04/04/18 12/17/22 No, Physician PCP - General 03/25/23 07/11/23 Stewart Lipscomb MD PCP - General Family Medicine 07/12/23 documented as of this encounter
--- OUTSIDE RECORDS SUMMARY | 2024-12-03 07:00 | XMS_ITS | Encounter Summary ---
Author Organization [facility] Facility Care Team Providers Care Brand Activation Manager Name Role Phone Stewart Lipscomb MD Primary Care Provider [phone] No, Physician Primary Care Provider [phone] Stewart Lipscomb MD Primary Care Provider [phone] Encounter Details Date Type Department Care Team (Latest Contact Info) Description 12/03/2017 Orders Only [facility] CLINCONV ProviderRob MD [address] [place] [address] Social History Tobacco Use Types Packs/Day [...] on filedocumented in this encounter Care Teams Brand Activation Manager Relationship Specialty Start Date End Date Stewart Lipscomb MD PCP - General Family Medicine 04/04/18 12/17/22 No, Physician PCP - General 03/25/23 07/11/23 Stewart Lipscomb MD PCP - General Family Medicine 07/12/23 documented as of this encounter
--- OUTSIDE RECORDS SUMMARY | 2024-12-03 07:00 | XMS_ITS | Clinical Summary ---
Author Organization [facility] Address [address] [place] [address] Care Team Providers Care Hand Tile Maker Name Role Phone Stewart Lipscomb MD Primary Care Provider [phone] Allergies No known active allergies Medications doxazosin (CARDURA) 4 mg tablet Take 1 tablet (4 mg total) by mouth nightly 8 Active finasteride (PROSCAR) 5 mg tablet Take 1 tablet (5 mg total) by mouth daily 8 Active omega 8-wqk-bvr-fish oil 360-1,200 mg capsule,delayed release(DR/EC) Take 2,400 [...] test. Assessment & Plan (07/27/2024 11:15 AM ABRASIVE WATER JET CUTTER OPERATOR): Due to the patient having shortness of [...] 2023. Assessment & Plan (07/27/2024 11:15 AM ABRASIVE WATER JET CUTTER OPERATOR): I have ordered CT scan to compare the pulmonary nodules. The patient is going to obtain a disc from [facility] so that we can compare images. Chest pressure 10/10/2022 YESENIA (obstructive sleep apnea) 05/08/2021 Assessment & Plan (10/27/2024 11:44 AM CDT): The patient continues to benefit from the auto titrating CPAP unit with a range of 5-15 cm water pressure. His DME company is [employer]. Assessment & Plan (09/07/2024 11:08 AM CDT): Patient continue to wear CPAP at auto titrating range of 5-15 cm water pressure while sleeping. His DME is [employer]. Assessment & Plan (07/27/2024 11:14 AM ABRASIVE WATER JET CUTTER OPERATOR): Due to ongoing symptoms, the patient will [...] pressure to treat obstructive sleep apnea. DME [employer]. The patient has received his new CPAP from [employer]. Assessment & Plan (05/08/2021 10:52 AM ABRASIVE WATER JET CUTTER OPERATOR): The patient will continue with auto titrating CPAP therapy set at 5-15 cm water pressure to treat obstructive sleep apnea. Patient denied need for supplies. DME [employer]. The patient and I discussed the recall [...] pursue at this time. Stop metoprolol. Continue [place] 3 fatty acids check magnesium level. Discussed association with cardiomyopathy and would consider if EF deteriorates over time Bradycardia 12/10/2018 Assessment & Plan (12/10/2018 11:04 AM CDT): Mild. Stop metoprolol. Check thyroid panel. Palpitations 10/03/2018 Coronary artery disease invo lving [place] coronary artery of [place] heart without angina pectoris 10/03/2018 History of [...] function test and CT scan results from [facility]. Assessment & Plan (12/10/2018 11:02 AM CDT): Not secondary to PVCs. Dyslipidemia 10/03/2018 04/04/2021 Encounters Date Type Department Care Team Description 11/20/2024 4:33 PM CDT - 11/20/2024 11:59 PM CDT Hospital Encounter [facility] [place] [address] [place] [address] Restrictive lung disease Discharge Disposition: Discharge to home or self care 11/10/2024 Orders Only [facility] Pulmonology [address] [facility] [address] [place] [address] Ehsan Cutler MD Dyspnea on exertion (Primary Dx) 10/27/2024 11:55 AM CDT Lab [facility] Medical Office Building [address] [place] [address] Restrictive lung disease 10/27/2024 10:45 AM CDT Office Visit [facility] Pulmonary [place] [address] [facility] [address] [place] [address] Ehsan Cutler MD YESENIA (obstructive sleep apnea) (Primary Dx); Panlobular emphysema (HCC); Pulmonary nodules; Restrictive lung disease 10/13/2024 10:38 AM CDT - 10/13/2024 11:59 PM CDT Hospital Encounter [facility] Respiratory Therapy [address] [place] [address] Panlobular emphysema (HCC) Discharge Disposition: Discharge to home or self care 09/07/2024 10:45 AM CDT Office Visit [address] [address] Shaye Mead NP YESENIA (obstructive sleep apnea) (Primary Dx); Panlobular emphysema (HCC); Pulmonary nodules 09/07/2024 Telephone [place] [id number] [address] Ehsan Cutler MD Orders Only 09/07/2024 Orders Only [facility] Outside Images [address] [place] [address] Transcribed Order, Provider from Last 3 Months Immunizations Immunization Administration Dates Next Due Influenza, [...] 10/27/2024 11:04 AM CDT Plan of Treatment Health Maintenance Due Date Last Done Comments Hepatitis B Screening 11/23/1958 Well Visit 65+ 11/23/2004 Depression Screening 03/14/2021 03/14/2020 Fall Risk Assessment 03/14/2021 03/14/2020 Covid-19 Vaccine ( - 2023-2 5 season) 2024 03/20/2021, 08/31/2020, 08/11/2020 DTaP/Tdap/Td Vaccine (2 - Td or Tdap) 09/26/2028 09/26/2018, 12/29/2013 Zoster Vaccine Completed 04/07/2021, 01/06/2021 Pneumococcal vaccine 65+ Completed 01/04/2022, 04/10/2018 Influenza Vaccine Completed 04/24/2024, , 05/03/2021, Additional history exists Procedures Procedure Name Priority Date/Time Associated Diagnosis [...] Recent guidelines by the Fleischner Society (Radiology 733362,2017) divides patient into low vs. high risk [...] immunosuppression, or patients with known primary cancer. http://pubs.rsna.org/doi/pdf/10.1148/radiol.1637867888 THIS IS AN ELECTRONICALLY VERIFIED FINAL REPORT 11/30/2024 2:01 PM - Electronically signed by Sanjay Davis D.O. PS: PS Report ID: [id number] Reading Location: [id number] Procedure Note Sanjay Davis, DO - 11/30/2024 [...] Recent guidelines by the Fleischner Society (Radiology 407290,2017)divides patient into low vs. high risk (for [...] immunosuppression, or patients with known primary cancer. http://pubs.rsna.org/doi/pdf/10.1148/radiol.3952467713 THIS IS AN ELECTRONICALLY VERIFIED FINAL REPORT 11/30/2024 2:01 PM - Electronically signed by Sanjay Davis D.O. PS: PS Report ID: [id number] Reading Location: [place] [address] us Ehsan Cutler MD [facility] CT PROCEDURES Final R esult * Differential, auto (10/27/2024 11:58 AM CDT) Neutrophil abs 5.29 1.50 - 6.50 K/cumm Comment:Testing performed by : [facility] [address] [address] Imm gran abs 0.01 0.00 - 0.10 K/cumm [facility] Comment:Testing performed by : [address] [address] Lymphocyte abs 3.00 0.80 - 3.30 K/cumm [facility] Comment:Testing performed by : [address] [address] Monocyte abs 0.79 0.20 - 0.80 K/cumm [facility] Comment:Testing performed by : [address] [address] Eosinophil abs 0.21 0.00 - 0.50 K/cumm [facility] Comment:Testing performed by : [address] [address] Basophil abs 0.05 0.00 - 0.10 K/cumm [facility] Comment:Testing performed by : [address] [address] Neutrophil pct 56.7 % [facility] Comment: Interpretive Data Percent cell count reference ranges are not reported, since discordance with absolute values may lead to misinterpretation of CBC data. Current Interpretive Data was last revised on 2017. Testing performed by: [address] [address] Imm gran pct 0.1 % [facility] Comment: Interpretive Data Percent cell count reference ranges are not reported, since discordance with absolute values may lead to misinterpretation of CBC data. Current Interpretive Data was last revised on 2017. Testing performed by: [address] [address] Lymphocyte pct 32.1 % [facility] Comment: Interpretive Data Percent cell count reference ranges are not reported, since discordance with absolute values may lead to misinterpretation of CBC data. Current Interpretive Data was last revised on 2017. Testing performed by: [address] [address] Monocyte pct 8.4 % [facility] Comment: Interpretive Data Percent cell count reference ranges are not reported, since discordance with absolute values may lead to misinterpretation of CBC data. Current Interpretive Data was last revised on 2017. Testing performed by: [address] [address] Eosinophil pct 2.2 % [facility] Comment: Interpretive Data Percent cell count reference ranges are not reported, since discordance with absolute values may lead to misinterpretation of CBC data. Current Interpretive Data was last revised on 2017. Testing performed by: [address] [address] Basophil pct 0.5 % [facility] Comment: Interpretive Data Percent cell count reference ranges are not reported, since discordance with absolute values may lead to misinterpretation of CBC data. Current Interpretive Data was last revised on 2017. Testing performed by: [address] [address] Blood 10/27/2024 11:5 8 AM CDT 10/27/2024 12:39 PM CDT us Ehsan Cutler MD LAB BLOOD ORDERABLES Stephanie l Result [place] [id number] [facility] Department [place] [address] * (ABNORMAL) CBC with auto differential (10/27/2024 11:58 AM CDT) [facility] WBC 9.35 3.80 - 9.90 K/cumm Comment:Testing performed by : [address] [address] Hgb 13.9 13.0 - 17.5 g/dL [facility] Comment:Testing performed by : [address] [address] Hct 42.2 38.9 - 50.3 % [facility] Comment:Testing performed by : [address] [address] Plt 227 150 - 400 K/cumm [facility] Comment:Testing performed by : [address] [address] MPV 9.4 9.1 - 12.3 fL [facility] Comment:Testing performed by : [address] [address] RBC 4.27(L) 4.30 - 5.80 M/cumm [facility] Comment:Testing performed by : [address] [address] MCV 98.8(H) 81.3 - 96.4 fL [facility] Comment:Testing performed by : [address] [address] MCH 32.6 27.1 - 33.3 pg [facility] Comment:Testing performed by : [address] [address] MCHC 32.9 32.3 - 35.7 g/dL [facility] Comment:Testing performed by : [address] [address] RDW CV 13.2 11.1 - 14.9 % [facility] Comment:Testing performed by : [address] [address] RDW SD 47.8 35.7 - 48.1 fL [facility] Comment:Testing performed by : [address] [address] NRBC abs 0.00 0.00 - 0.01 K/cumm [facility] Comment:Testing performed by : [address] [address] Blood 10/27/2024 11:5 8 AM CDT 10/27/2024 12:39 PM CDT us Ehsan Cutler MD LAB BLOOD ORDERABLES Stephanie l Result [facility] Department [place] [address] * (ABNORMAL) Pulmonary Function Test - (10/13/2024 11:29 AM CDT) [facility] FVC PRE 3.63 2.85 - 5.17 L [facility] FEV1 PRE 2.83 1.98 - 3.77 L [facility] MOP5SLW-WKG 78.06 58.41 - 87.81 % [facility] QTZ81-40% PRE 2.70 0.69 - 3.87 L/s [facility] PEF PRE 8.21 5.78 - 9.76 L/s [facility] DLCOc SB 13.97(A) 19.18 - 33.04 ml/(min*mm Hg) [facility] DLCO/VA PRE 2.91 2.40 - 4.53 ml/(min*mm Hg*L) [facility] VA 4.80(A) 7.38 - 7.38 L [facility] TLC PRE 5.74(A) 6.38 - 8.68 L [facility] VC PRE 3.70 3.23 - 5.07 L [facility] IC PRE 2.74(A) 3.22 - 3.22 L [facility] FRC PL PRE 3.00 2.96 - 4.93 L [facility] ERV PRE 0.96(A) 0.93 - 0.93 L [facility] RV PRE 2.04(A) 2.34 - 3.69 L [facility] VTG 3.09 L [facility] RAW PRE 0.73(A) 3.06 - 3.06 cmH2O*s/L [facility] Anatomical Region Laterality Modality PFT 10/13/2024 10:4 [...] ambulation. Electronically signed by Jesus Resendiz MD, FCCP Pulmonary and Critical Care Medicine [facility] Shaye Mead ACCOUNTS OFFICER PFT ORDERABLES Final Re sult from Last 3 Months Insurance MEDICARE COMMERCIAL GENERIC [employer]ETNA SENIOR SUPPLEMENT MEDICARE AET[employer] SENIOR SUPPLEMENT Care Teams Hand Tile Maker Relationship Specialty Start Date End Date Stewart Lipscomb MD PCP - General Family Medicine 07/12/23
--- OUTSIDE RECORDS SUMMARY | 2024-12-03 07:00 | XMS_ITS | Encounter Summary ---
Author Organization [facility] Facility Care Team Providers Care Television Newscast Director Name Role Phone Stewart Lipscomb MD Primary Care Provider [phone] No, Physician Primary Care Provider [phone] Stewart Lipscomb MD Primary Care Provider [phone] Encounter Details Date Type Department Care Team (Latest Contact Info) Description 10/10/2016 Orders Only [facility]INCON[facility] ProviderRob MD [address] [place] [address] Social History Tobacco Use Types Packs/Day [...] on filedocumented in this encounter Care Teams Television Newscast Director Relationship Specialty Start Date End Date Stewart Lipscomb MD PCP - General Family Medicine 04/04/18 12/17/22 No, Physician PCP - General 03/25/23 07/11/23 Stewart Lipscomb MD PCP - General Family Medicine 07/12/23 documented as of this encounter
--- OUTSIDE RECORDS SUMMARY | 2024-12-03 07:00 | XMS_ITS | Encounter Summary ---
Author Organization [facility] Facility Care Team Providers Care Cna Ltc Name Role Phone Stewart Lipscomb MD Primary Care Provider [phone] No, Physician Primary Care Provider [phone] Stewart Lipscomb MD Primary Care Provider [phone] Encounter Details Date Type Department Care Team (Latest Contact Info) Description 01/08/2018 Orders Only [facility]INCONV ProviderRob MD [address] [place] [address] Social History Tobacco Use Types Packs/Day [...] on filedocumented in this encounter Care Teams Cna Ltc Relationship Specialty Start Date End Date Stewart Lipscomb MD PCP - General Family Medicine 04/04/18 12/17/22 No, Physician PCP - General 03/25/23 07/11/23 Stewart Lipscomb MD PCP - General Family Medicine 07/12/23 documented as of this encounter
--- OUTSIDE RECORDS SUMMARY | 2024-12-03 07:00 | XMS_ITS | Encounter Summary ---
Author Organization [facility] Facility Care Team Providers Care Home Maker Name Role Phone Stewart Lipscomb MD Primary Care Provider [phone] No, Physician Primary Care Provider [phone] Stewart Lipscomb MD Primary Care Provider [phone] Encounter Details Date Type Department Care Team (Latest Contact Info) Description 12/12/2017 Orders Only [facility]INCONV ProviderRob MD [address] [place] [address] Social History Tobacco Use Types Packs/Day [...] on filedocumented in this encounter Care Teams Home Maker Relationship Specialty Start Date End Date Stewart Lipscomb MD PCP - General Family Medicine 04/04/18 12/17/22 No, Physician PCP - General 03/25/23 07/11/23 Stewart Lipscomb MD PCP - General Family Medicine 07/12/23 documented as of this encounter
--- OUTSIDE RECORDS SUMMARY | 2024-12-03 07:00 | XMS_ITS | Encounter Summary ---
Author Organization [facility] Facility Care Team Providers Care Aluminum Siding Installer Name Role Phone Stewart Lipscomb MD Primary Care Provider [phone] No, Physician Primary Care Provider [phone] Stewart Lipscomb MD Primary Care Provider [phone] Encounter Details Date Type Department Care Team (Latest Contact Info) Description 02/27/2018 Orders Only [facility]INCON[facility] ProviderRob MD [address] [place] [address] Social History Tobacco Use Types Packs/Day [...] on filedocumented in this encounter Care Teams Aluminum Siding Installer Relationship Specialty Start Date End Date Stewart Lipscomb MD PCP - General Family Medicine 04/04/18 12/17/22 No, Physician PCP - General 03/25/23 07/11/23 Stewart Lipscomb MD PCP - General Family Medicine 07/12/23 documented as of this encounter
--- OUTSIDE RECORDS SUMMARY | 2024-12-03 07:00 | XMS_ITS | Encounter Summary ---
Author Organization [facility] Facility Care Team Providers Care Electric Container Tester Name Role Phone Stewart Lipscomb MD Primary Care Provider [phone] No, Physician Primary Care Provider [phone] Stewart Lipscomb MD Primary Care Provider Encounter Details Date Type Department Care Team (Latest Contact Info) Description 07/03/2018 Orders Only [facility]INCON[facility] ProviderRob MD [address] [place] [address] Social History Tobacco Use Types Packs/Day [...] on filedocumented in this encounter Care Teams Electric Container Tester Relationship Specialty Start Date End Date Stewrat Lipscomb MD PCP - General Family Medicine 04/04/18 12/17/22 No, Physician PCP - General 03/25/23 07/11/23 Stewart Lipscomb MD PCP - General Family Medicine 07/12/23 documented as of this encounter
--- OUTSIDE RECORDS SUMMARY | 2024-12-03 07:00 | XMS_ITS | Encounter Summary ---
Author Organization [facility] Facility Care Team Providers Care Literacy Education Professor Name Role Phone Stewart Lipscomb MD Primary Care Provider [phone] No, Physician Primary Care Provider [phone] Stewart Lipscomb MD Primary Care Provider [phone] Encounter Details Date Type Department Care Team (Latest Contact Info) Description 02/05/2017 Orders Only [facility]INCON[facility] ProviderRob MD [address] [place] [address] Social History Tobacco Use Types Packs/Day [...] on filedocumented in this encounter Care Teams Literacy Education Professor Relationship Specialty Start Date End Date Stewart Lipscomb MD PCP - General Family Medicine 04/04/18 12/17/22 No, Physician PCP - General 03/25/23 07/11/23 Stewart Lipscomb MD PCP - General Family Medicine 07/12/23 documented as of this encounter
[2024-12-03 07:58] LABS: Alanine Aminotransferase 35 U/L (6-50); Albumin Level 4.1 g/dL (3.5-5.1); Alkaline Phosphatase 65 U/L (38-126); Anion Gap 7 mmol/L (4-12); Aspartate Amino Transferase 40 U/L (17-59); Bilirubin,Total 0.8 mg/dL (0.2-1.3); Blood Urea Nitrogen 20 mg/dL (9-20); Calcium 9.3 mg/dL (8.4-10.2); Carbon Dioxide 27 mmol/L (22-30); Chloride 105 mmol/L (98-107); Cholesterol 136 mg/dL (0-200); Estimated Glomerular Filt Rate > 60; Glucose 111 mg/dL (65-110); HDL Direct 43 mg/dL; Potassium 4.1 mmol/L (3.4-5.0); Sodium 139 mmol/L (137-145); Total Protein 7.1 g/dL (6.3-8.2); Triglycerides 105 mg/dL (<150)
[2024-12-03 08:19] LABS: LDL Cholesterol Direct 61 mg/dL
== END 2024-12-03 06:56 | disposition home or self-care (01) ==
PROVIDERS: PCP Family Medicine; Visit Provider Internal Medicine Cardiovascular Disease
DX: R06.09 Other forms of dyspnea (principal); I10 Essential (primary) hypertension; I25.10 Atherosclerotic heart disease of native coronary artery without angina pectoris; E78.2 Mixed hyperlipidemia
CPT/HCPCS: 36415; 80053; 80061

== ENCOUNTER 2025-06-02 07:18 | Outpatient (CLI) | payer MEDICARE, SELFPAY ==
[2025-06-02 08:12] LABS: Alanine Aminotransferase 43 U/L (6-50); Albumin Level 3.8 g/dL (3.5-5.1); Alkaline Phosphatase 68 U/L (38-126); Anion Gap 2 mmol/L (4-12); Aspartate Amino Transferase 49 U/L (17-59); Bilirubin,Total 0.7 mg/dL (0.2-1.3); Blood Urea Nitrogen 23 mg/dL (9-20); Calcium 9.0 mg/dL (8.4-10.2); Carbon Dioxide 31 mmol/L (22-30); Chloride 105 mmol/L (98-107); Cholesterol 134 mg/dL (0-200); Estimated Glomerular Filt Rate > 60; Glucose 110 mg/dL (65-110); HDL Direct 44 mg/dL; Potassium 4.6 mmol/L (3.4-5.0); Sodium 138 mmol/L (137-145); Total Protein 6.9 g/dL (6.3-8.2); Triglycerides 95 mg/dL (<150)
== END 2025-06-02 07:19 | disposition home or self-care (01) ==
PROVIDERS: PCP Family Medicine; Visit Provider Internal Medicine Cardiovascular Disease
DX: I25.10 Atherosclerotic heart disease of native coronary artery without angina pectoris (principal); E78.2 Mixed hyperlipidemia
CPT/HCPCS: 36415; 80053; 80061